=== PATIENT | female | born 1950 | race Caucasian/White ===

== ENCOUNTER → 2019-06-30 14:40 | Outpatient (CLI) | payer MEDICARE, SELFPAY ==
--- NOTE | 2019-06-30 | DI.RAD.S_ITS ---
PROCEDURE: XR CHEST 2V INDICATIONS: CHRONIC COUGH TECHNIQUE: 2 views of the chest were acquired. COMPARISON: [facility], , CHEST 2 VIEW, 10/14/2017, 14:48. FINDINGS: Surgical changes and devices: None. Lungs and pleura: No acute consolidation. Scattered subsegmental atelectasis and/or scarring. No pleural effusion. No pneumothorax. 1.4 cm nodule projects in the right midlung and warrants further evaluation with CT Mediastinum: Mediastinal contours are normal. Heart size is normal. Bones and chest wall: No suspicious bony abnormalities. Soft tissues appear unremarkable. IMPRESSION: New 1.4 cm nodule projecting in the right midlung, concerning for malignant/metastatic etiology. Recommend further evaluation with chest CT. Dictated by: Nestor Houston M.D. on 06/30/2019 at 15:01 Approved by: Nestor Houston M.D. on 06/30/2019 at 15:27
== END ==
PROVIDERS: Visit Provider Internal Medicine
DX: R05 Cough (principal); R91.1 Solitary pulmonary nodule
CPT/HCPCS: 71046

== ENCOUNTER → 2019-07-07 12:40 | Outpatient (CLI) | payer MEDICARE, SELFPAY ==
--- NOTE | 2019-07-07 | DI.CT.S_ITS ---
PROCEDURE: CT CHEST W CON INDICATIONS: Other nonspecific abnormal finding of lung field TECHNIQUE: After the administration of intravenous contrast, 5 mm thick sections acquired from the pulmonary apices to the posterior costophrenic angles. 1 mm axial lung, 5 mm thick coronal and sagittal reformats and 7 mm axial MIP were acquired. For radiation dose reduction, the following was used: automated exposure control, adjustment of mA and/or kV according to patient size. COMPARISON: None. FINDINGS: Image quality: Excellent. Lungs and pleura: No acute air space opacities on the left and there is a lobulated masslike structure at the right upper lobe corresponding to the abnormality seen by plain film 06/30/19. This measures up to 1.9 cm AP, 1.5 cm transverse and 1.3 cm craniocaudad. On sagittal reformatt imaging it appears to abut the upper surface of the minor fissure. A bronchus leads to this mass. No pleural effusions or pneumothorax. Central and peripheral airways are patent and normal in caliber. Mediastinum: Heart size is normal. No pericardial effusion. No mediastinal or hilar adenopathy by size criteria. Thoracic aorta and central pulmonary arteries are normal in size. Esophagus is normal in caliber. No hiatal hernia. Bones and chest wall: No suspicious bony lesions. No vertebral body compression fractures. No axillary or supraclavicular adenopathy by size criteria. Thyroid gland appears normal. Abdomen: Visualized upper abdominal solid organs appear normal. Upper abdominal bowel loops are normal in caliber. IMPRESSION: Mildly spiculated likely malignant mass involving the right lung appears located within the inferior margin of the right upper lobe abutting the minor fissure at its upper aspect. This measures up to 1.9 x 1.5 x 1.3 cm. It was initially seen by plain film imaging earlier this month. As noted, a bronchus leads to the mass, and for this reason transbronchial biopsy likely is warranted. Nuclear medicine PET CT scanning also is recommended for staging purposes and to assist in confirming presence of malignancy in this setting of solitary pulmonary nodule evaluation. Dictated by: Goran Waite M.D. on 07/07/2019 at 15:08 Approved by: Goran Waite M.D. on 07/07/2019 at 15:15
[2019-07-07 13:43] LABS: Blood Urea Nitrogen 10 mg/dL (7-17); Estimated Glomerular Filt Rate > 60.0 mL/min (>60)
== END ==
PROVIDERS: Visit Provider Internal Medicine
DX: R91.8 Other nonspecific abnormal finding of lung field (principal)
CPT/HCPCS: 36415; 71260; 82565; 84520; Q9967

== ENCOUNTER 2019-08-30 12:22 | Day surgery (SDC) | payer MEDICARE, SELFPAY ==
--- NOTE | 2019-08-30 | PATH_ITS ---
[facility] Accession Number: [id number] . 01 Material submitted: . PART A: sigmoid colon - SIGMOID POLYP PART B: rectum - RECTAL POLYP X3 . 01 Clinical history: . COLONOSCOPY . 02 Diagnosis: A. Sigmoid Colon, Polyp, Biopsy: Hyperplastic polyp. . B. Rectum, Polyps x3, Biopsies: Hyperplastic polyps. MRV 08/31/2019 1121 Local . 02 Electronically signed: . Tatum Rose MD, Pathologist NPI- [id number] . 01 Gross description: . Part A: SIGMOID POLYP: Received in formalin is 1 fragment(s) of hughes, soft tissue measuring 0.1 x 0.1 x 0.1 cm submitted entirely in 1 cassette(s) Part B: RECTAL POLYP X3: Received in formalin are 3 fragment(s) of hughes, soft tissue measuring 0.2 x 0.2 x 0.2 cm to 0.3 x 0.3 x 0.3 cm submitted entirely in 1 cassette(s) /[facility] [place] 08/30/2019 203 Local . 02 Pathologist provided ICD-10: K63.5, K62.1 . 02 CPT . 750965, [id number] Performed at: 01 [facility] [address], [place], [place] [id number] MD Ash Arauz MD Phone: [phone] Performed at: 02 [facility] [address] [place], [place] [id number] MD Tatum Rose MD Phone: [phone]
--- NOTE | 2019-08-30 09:37 | PM.HP.1 ---
History of Present Illness History of Present Illness Date Patient Seen: 08/30/19 Chief complaint: [id number] COLONOSCOPY Narrative: Patient presented for colonoscopy. She did have Cologaurd testing that was positive. No previous colonoscopy. No known family history of colon cancer or colon polyps. Meds Home Medications and Allergies Home Medications Medication Instructions Recorded Confirmed Type divalproex 500 mg PO DAILY 08/30/19 08/30/19 History docusate sodium 100 mg PO DAILY 08/30/19 08/30/19 History multivitamin 1 tab PO DAILY 08/30/19 08/30/19 History psyllium husk [Metamucil] 1 tbsp PO DAILY 08/30/19 08/30/19 History simvastatin 10 mg PO DAILY 08/30/19 08/30/19 History Allergies Allergy/AdvReac Type Severity Reaction Status Date / Time No Known Drug Allergies Allergy Verified 08/30/19 13:54 Review of Systems Review of Systems ROS Unobtainable: All systems reviewed & are unremarkable except as noted in HPI and below Exam Const General: cooperative, comfortable and well developed Nutritional Appearance: thin Orientation: alert, awake and oriented x3 Resp Effort & Inspection: normal respiratory effort and able to speak in complete sentences Auscultation: clear to auscultation bilaterally Cardio Rate: regular rate Rhythm: regular rhythm Heart Sounds: S1 normal and S2 normal GI Palpation: soft and No tender Auscultation: normal bowel sounds Extrem Right lower extremity: no edema Left lower extremity: no edema Assessment & Plan Assessment & Plan narrative: 1. Positive Cologaurd - Colonoscopy today, further recommendations to follow
[2019-08-30 13:58] VITALS: BP 121/66; PULSE 79; RESP 15; TEMP 36.2; O2SAT 100; BMI 17.7
[2019-08-30] MEDS: SODIUM CHLORIDE 0.9% 1,000 ML 70 ML IV (14:10)
[2019-08-30] MEDS: fentaNYL 250 MCG/5 ML INJ IV (14:36)
[2019-08-30] MEDS: MIDAZOLAM 5 MG/5 ML VIAL IV (14:36)
[2019-08-30 14:54] VITALS: BP 106/59; PULSE 69; RESP 15; TEMP 36.1; O2SAT 100
[2019-08-30 14:59] VITALS: BP 90/52; PULSE 60; RESP 13; O2SAT 100
--- NOTE | 2019-08-30 15:02 | PM.OP.ENDO ---
Operative Date/Time/Diagnoses Date of procedure: 08/30/19 Time of procedure: 14:19 Procedure Notes Procedure in detail: Surgeon: Madelaine Kraft DO Procedure: Colonoscopy with polypectomy Preoperative diagnosis: 1. Positive Cologaurd testing 2. Unintentional weight loss Postoperative diagnosis: 1. 4 mm sigmoid colon polyp removed cold snare 2. Three rectosigmoid polyps removed with cold forceps 2-3 mm in size 3. Diverticulosis of the sigmoid, descending, and transverse colon Medications: Conscious sedation using 2 mg IV of Midazolam and 100 mcg IV of Fentanyl Preanesthesia Assessment An H and P was performed/updated and the Px?s ASA class is 2. The procedure was discussed in detail with the patient. The potential risks and complications including infection, bleeding, missed lesions, perforation, need for surgery in case of perforation, prolonged hospital stay, and were explained. A brief question and answer period was allotted and once all questions were answered, informed consent was obtained. The patient was brought back to the procedure room and placed on standard monitoring. The patient?s vital signs were monitored continuously throughout the entire procedure. Prior to starting, a timeout was performed to confirm the patient?s identity, allergies, medications, and procedure. 1. 4 mm sigmoid colon polyp removed cold snare 2. Three rectosigmoid polyps removed with cold forceps 2-3 mm in size 3. Diverticulosis of the sigmoid, descending, and transverse colon -medium to large Procedure in detail The patient was placed in left lateral decubitus position and once adequate sedation was obtained a TONG was performed. The digital rectal examination did not reveal any palpable lesions. The tip of the colonoscope was placed in the anal canal and advanced without difficulty all the way to the cecum which was identified by the appendiceal orifice and the ileocecal valve. Careful examination of all laird of the colon was performed with irrigation of any residual stool. The patient tolerated the procedure well and will be brought back to the recovery area to be discharged once criteria are met. The prep was judged to be adequate to identify polyps greater than 5 mm. The withdrawal time was 18min. The total physician intraservice time was 30min. Complications There were no complications and estimated blood loss was minimal. Recommendations: Resume previous diet Continue outPx medications Follow up pathology results Repeat colonoscopy based on pathology results Recommend further evaluation for unintentional weight loss, consider CT abdomen and pelvis -recommend office follow-up for further workup recommendations. An emergency contact number was given to the patient for any complications related to the procedure
[2019-08-30 15:04] VITALS: BP 87/49; PULSE 60; RESP 13; O2SAT 100
[2019-08-30 15:20] VITALS: BP 113/56; PULSE 66; RESP 20; O2SAT 98
[2019-08-30 15:27] VITALS: BP 109/59; PULSE 59; RESP 16; TEMP 36.2; O2SAT 99
== END 2019-08-30 15:45 | disposition home or self-care (01) ==
PROVIDERS: PCP Nurse Practitioner Family; Visit Provider Student in an Organized Health Care Education/Training Program
PROC: 0DJD8ZZ Inspection of Lower Intestinal Tract, Via Natural or Artificial Opening Endoscopic (ICD-10-PCS; CPT 45378; principal; 2019-08-30 13:30)
DX: R19.5 Other fecal abnormalities (principal); K57.30 Diverticulosis of large intestine without perforation or abscess without bleeding; R63.4 Abnormal weight loss; K62.1 Rectal polyp; K63.5 Polyp of colon
CPT/HCPCS: 45385; 45380; J2250; J3010

== ENCOUNTER → 2019-09-06 16:43 | Outpatient (CLI) | payer MEDICARE, SELFPAY ==
[2019-09-06 18:19] LABS: Cancer Antigen 125 6 U/mL (0-35)
== END ==
PROVIDERS: Family Provider Internal Medicine; PCP Internal Medicine; Visit Provider Obstetrics & Gynecology
DX: R14.0 Abdominal distension (gaseous) (principal)
CPT/HCPCS: 36415; 86304

== ENCOUNTER → 2019-09-08 13:55 | Outpatient (CLI) | payer MEDICARE, SELFPAY ==
--- NOTE | 2019-09-15 08:38 | PM.PFT.1 ---
Pulmonary Function Test Referral & Results Date Patient Seen: 09/08/19 Requesting provider: Hector Ochoa Results: The spirometry demonstrates an FVC of 1.8 L which is 68% of predicted. The FEV1 was measured at 1.27 L which is 61% of predicted. The FEV1/FVC ratio was 68 which is 89% of predicted. Following the administration of bronchodilator there was and 11% improvement in FEV1 and a 50% improvement in FEF 25-75%. Lung volumes show an SVC of 1.64 L which is 61% of predicted. The diffusing capacity was measured at 13.13 which is 60% of predicted. No hemoglobin value was provided, so no correction for potential anemia could be made, if appropriate. The maximum voluntary ventilation was reduced Interpretation: This study demonstrates mild to moderate obstructive lung disease with limited evidence of benefit following bronchodilator, particularly small airway flow based on improvement in FEF 25-75% There is also [id number] restrictive lung disease present based on reduction SVC There is also moderate reduction in diffusing capacity suggesting disease at the capillary alveolar level Altogether this is consistent with a diagnosis of COPD
== END ==
PROVIDERS: Family Provider Internal Medicine; PCP Internal Medicine; Visit Provider Thoracic Surgery (Cardiothoracic Vascular Surgery)
DX: C34.11 Malignant neoplasm of upper lobe, right bronchus or lung (principal); F17.200 Nicotine dependence, unspecified, uncomplicated
CPT/HCPCS: 94060; 94726; 94729

== ENCOUNTER → 2019-09-15 12:03 | Outpatient (CLI) | payer MEDICARE, SELFPAY ==
--- NOTE | 2019-09-15 12:04 | DI.US.S_ITS ---
PROCEDURE: US PELVIC COMPLETE INDICATIONS: ABDOMINAL BLOATING, LUNG CANCER TECHNIQUE: Real-time scanning was performed of the pelvic organs, with image documentation. Additional endovaginal scanning was necessary due to incomplete visualization of the adnexal and endometrial structures by transabdominal scanning. COMPARISON: [facility], [place], PET NECK TO MID THIGH, 08/31/2019, 10:00. [facility], , US ABDOMEN COMPLETE, 09/15/2019, 12:20. FINDINGS: Transabdominal scanning: Limited scanning through the kidneys shows no hydronephrosis. No pathologic free abdominal or pelvic fluid. Endovaginal scanning: Uterus: Prior hysterectomy. Ovaries: Ovaries not identified. No adnexal mass is seen. Debris within the urinary bladder. Bladder wall is prominent and there is urinary bladder posterior wall irregularity likely related to trabeculations. IMPRESSION: 1. Ovaries not identified. 2. Debris within the urinary bladder which could be related to cystitis. Recommend correlation with urinalysis. 3. Possible urinary bladder wall thickening and posterior wall irregularity suggestive of trabeculations. Dictated by: Michele Brantley [facility] Interpreted: Lola Marrero MD on 09/15/2019 at 16:31 Approved by: Lola Marrero M.D. on 09/15/2019 at 16:48
--- NOTE | 2019-09-15 12:04 | DI.US.S_ITS ---
PROCEDURE: US ABDOMEN COMPLETE INDICATIONS: ABDOMINAL BLOATING, LUNG CANCER TECHNIQUE: Real-time scanning was performed of the abdominal and retroperitoneal organs, with image documentation. COMPARISON: [facility], [place], XR CHEST 2 VIEWS, 09/14/2019, 7:58. FINDINGS: Liver: Liver is normal in size and homogeneous in echotexture. Gallbladder: No gallstones identified. Normal gallbladder wall. No pericholecystic fluid. Negative sonographic Ramsay sign. Biliary ducts: Intrahepatic bile ducts are non-dilated. Extrahepatic bile duct caliber measures 7.0 mm. Normal is 6-7 mm or less in diameter, or 10 mm or less post-cholecystectomy. Pancreas: Visualized portions of the pancreas are sonographically normal. Spleen: Spleen is normal in size and homogeneous in echotexture. Kidneys: Kidneys are normal in size and echotexture. Right kidney measures 10.1 cm long; left kidney measures 9.7 cm long. No hydronephrosis or nephrolithiasis. No solid masses. Subcentimeter right renal cortical cyst. Aorta: Visualized aorta is normal in caliber at less than 3 cm. Iliacs: Not well-seen. IVC: Intrahepatic inferior vena cava is patent. Miscellaneous: No free abdominal fluid. Small right pleural effusion. IMPRESSION: No source for abdominal and pelvic bloating identified. Small right pleural effusion. Dictated by: Michele Brantley [facility] Interpreted: Lola Marrero MD on 09/15/2019 at 16:28 Approved by: Lola Marrero M.D. on 09/15/2019 at 16:48
== END ==
PROVIDERS: PCP Internal Medicine; Visit Provider Obstetrics & Gynecology
DX: R14.0 Abdominal distension (gaseous) (principal); C34.90 Malignant neoplasm of unspecified part of unspecified bronchus or lung; J90 Pleural effusion, not elsewhere classified; Z90.710 Acquired absence of both cervix and uterus
CPT/HCPCS: 76700; 76830; 76856

== ENCOUNTER → 2020-12-05 13:35 | Outpatient (CLI) | payer MEDICARE, SELFPAY ==
[2020-12-05] MEDS: COVID-19 VACC, Ad26(JANSSEN)/PF 0.5 ML IM (14:45)
== END ==
PROVIDERS: PCP Internal Medicine; Visit Provider Internal Medicine
DX: Z23 Encounter for immunization (principal)
CPT/HCPCS: 0031A; 91303

== ENCOUNTER → 2021-07-25 14:12 | Outpatient (CLI) | payer MEDICARE, SELFPAY ==
[2021-07-25 14:44] LABS: Hemoglobin A1C% w Est Avg Glu 5.7 % (4.0-6.0)
== END ==
PROVIDERS: PCP Physician Assistant; Referring Provider Physician Assistant; Visit Provider Physician Assistant
DX: R73.03 Prediabetes (principal)
CPT/HCPCS: 36415; 83036

== ENCOUNTER → 2022-09-03 11:36 | Outpatient (CLI) | payer MEDICARE, SELFPAY ==
[2022-09-03 12:05] LABS: Add Manual Diff / Slide Review NO; Basophils Absolute Auto 100 /uL (0-100); Eosinophils Absolute Auto 200 /uL (0-450); Eosinophils Percent Auto 1.9 % (2-4); Hematocrit 42.5 % (36-46); Hemoglobin 14.5 g/dL (12.0-16.0); Lymphocytes Absolute Auto 2500 /uL (1100-4500); Lymphocytes Percent Auto 26.6 % (25-40); Mean Corpuscular HGB Conc 34.1 % (30-36); Mean Corpuscular Hemoglobin 30.8 PG (26-34); Mean Corpuscular Volume 90.2 fL (80-100); Monocytes Absolute Auto 700 /uL (0-900); Monocytes Percent Auto 7.2 % (3-14); Neutrophils Absolute Auto 5900 /uL (1500-7000); Neutrophils Percent Auto 63.3 % (50-75); Platelet Count 235 X10^3/uL (150-400); Red Blood Cell Count 4.71 X10^6/uL (4.0-5.2); Red Cell Distribution Width 13.2 % (11.6-14.8); White Blood Cell Count 9.2 X10^3/uL (4.5-11.0)
[2022-09-03 12:17] LABS: Hemoglobin A1C% w Est Avg Glu 6.1 % (4.0-6.0)
[2022-09-03 12:25] LABS: Alanine Aminotransferase 17 IU/L (<35); Albumin 3.9 g/dL (3.5-5.0); Albumin Globulin Ratio 1.4 (1.0-2.8); Alkaline Phosphatase 61 U/L (38-126); Aspartate Aminotransferase 21 IU/L (14-36); Bilirubin Total 0.5 mg/dL (0.2-1.3); Blood Urea Nitrogen 12 mg/dL (7-17); Calcium 9.1 mg/dL (8.4-10.2); Carbon Dioxide 28 mmol/L (22-32); Chloride 108 mmol/L (98-107); Cholesterol 193 mg/dL (140-199); Estimated Glomerular Filt Rate > 60 mL/min (>60); Globulin 2.8 g/dL (1.7-4.1); Glucose 108 mg/dL (80-110); HDL Cholesterol 49 mg/dL (40-60); HEMOLYSIS < 15 (0-50); LDL Cholesterol Calculated 113 mg/dL (<100); Potassium 4.1 mmol/L (3.4-5.1); Sodium 143 mmol/L (137-145); Total Protein 6.7 g/dL (6.3-8.2); Triglycerides 153 mg/dL (35-150)
[2022-09-03 12:54] LABS: TSH w/ Reflex to FT4 1.38 uIU/mL (0.47-4.68)
--- NOTE | 2022-09-03 16:07 | DI.MG.S_ITS ---
BILATERAL DIGITAL SCREENING MAMMOGRAM 3D/2D WITH CAD: 09/03/2022 CLINICAL: Routine screening. Comparison is made to exams dated: 06/12/2014 mammogram - [facility], 03/22/2012 mammogram, and 12/17/2010 mammogram - [facility]. There are scattered areas of fibroglandular density in both breasts (category b / 25%-50% glandular tissue). Current study was also evaluated with a Computer Aided Detection (CAD) system. There are mole markers on the right breast. No significant masses, calcifications, or other findings are seen in either breast. There has been no significant interval change. IMPRESSION: NEGATIVE There is no mammographic evidence of malignancy. A 1 year screening mammogram is recommended. Based on the Tyrer Cuzick model (a risk assessment model) the patient's lifetime risk is 3.7% and her 10 year risk is 3.0%. According to the ACR, ACS, and NCCN guidelines, an annual breast MRI exam along with mammogram is recommended if the patient's lifetime risk is 20% or greater. This exam was interpreted at Station ID: [id number]. NOTE: For mammograms, a report in lay terms will be sent to the patient. Approximately 15% of breast malignancies will not be visualized mammographically. In the management of a palpable breast mass, a negative mammogram must not discourage biopsy of a clinically suspicious lesion. Electronically Signed By: Jenae johnson/augustin:09/04/2022 09:19:09 letter sent: Normal Exam ACR BI-RADS Category 1: Negative [id number]
== END ==
PROVIDERS: PCP Family Medicine; Referring Provider Family Medicine; Visit Provider Family Medicine
DX: C34.90 Malignant neoplasm of unspecified part of unspecified bronchus or lung (principal); Z13.820 Encounter for screening for osteoporosis; M81.0 Age-related osteoporosis without current pathological fracture; Z78.0 Asymptomatic menopausal state; Z12.31 Encounter for screening mammogram for malignant neoplasm of breast; R53.83 Other fatigue; R73.03 Prediabetes; E78.5 Hyperlipidemia, unspecified; R63.4 Abnormal weight loss; Z90.710 Acquired absence of both cervix and uterus
CPT/HCPCS: 36415; 77063; 77067; 77080; 80053; 80061; 83036; 84443; 85025

== ENCOUNTER → 2022-12-25 11:41 | Outpatient (CLI) | payer MEDICARE, SELFPAY ==
[2022-12-25 15:27] LABS: Alanine Aminotransferase 16 IU/L (<35); Albumin 3.8 g/dL (3.5-5.0); Albumin Globulin Ratio 1.3 (1.0-2.8); Alkaline Phosphatase 60 U/L (38-126); Aspartate Aminotransferase 22 IU/L (14-36); BUN Creatinine Ratio 18.8 (6-22); Bilirubin Total 0.6 mg/dL (0.2-1.3); Blood Urea Nitrogen 9 mg/dL (7-17); Calcium 9.7 mg/dL (8.4-10.2); Carbon Dioxide 30 mmol/L (22-32); Chloride 106 mmol/L (98-107); Cholesterol 170 mg/dL (140-199); Estimated Glomerular Filt Rate > 60 mL/min (>60); Globulin 2.9 g/dL (1.7-4.1); Glucose 85 mg/dL (80-110); HDL Cholesterol 51 mg/dL (40-60); HEMOLYSIS < 15 (0-50); LDL Cholesterol Calculated 90 mg/dL (<100); Potassium 4.2 mmol/L (3.4-5.1); Sodium 143 mmol/L (137-145); Total Protein 6.7 g/dL (6.3-8.2); Triglycerides 147 mg/dL (35-150)
[2022-12-25 15:41] LABS: Vitamin D 25 Hydroxy (D3) 44.3 ng/mL (30.0-100.0)
== END ==
PROVIDERS: Family Provider Family Medicine; PCP Family Medicine; Referring Provider Family Medicine; Visit Provider Family Medicine
DX: E78.5 Hyperlipidemia, unspecified (principal); M81.0 Age-related osteoporosis without current pathological fracture; R73.03 Prediabetes; Z79.899 Other long term (current) drug therapy
CPT/HCPCS: 36415; 80053; 80061; 82306; 83036

== ENCOUNTER 2023-03-11 12:30 | Outpatient (RCR) | payer MEDICARE, SELFPAY ==
--- NOTE | 2022-10-30 16:29 | PT.OIE ---
Current Diagnoses Unspecified urinary incontinence (10/30/22) Visit Care Team Role Provider Type SUHAS Lopes Attending Provider Physician Family Provider Primary Care Provider Referring Provider Specialty: Nursing Address: [address] [place] [address], [id number] Email: Physical Therapy Initial Evaluation PT-OP-A Visit Information Start: 10/30/22 12:35 Freq: Status: Active Protocol: Document 10/30/22 13:53 LRN (Rec: 10/30/22 16:27 LRN [id number]) Out-Patient Physical Therapy Visit Information Visit Information Visit Type Initial Evaluation Visit Start Time 13:53 Visit Stop Time 14:53 Total Visit Minutes 60 Visit Number 1 Evaluation Information Evaluation Date 10/30/22 Precautions Precautions Pt reports osteopenia in LB and R hip and osteroporosis of the L hip. Hyste and sling for prolapse 2010, Lung CA stage I surgery that was successful 2018 PT-OP-B Current Condition Start: 10/30/22 12:35 Freq: Status: Active Protocol: Document 10/30/22 13:53 LRN (Rec: 10/30/22 16:27 LRN [id number]) Current Condition History of Current Condition Onset Date 3-4 yrs ago Current Complaints Having to wear 2 adult diapers during the day. History of Current Condition Was having difficulty getting to work in without leaking; therefore started wearing diapers. 1 yr ago started wearing 2 diapers. Was taking care of grandson and had to use one on top of the other, but usually after getting home would toss the top one and use the bottom one for the rest of the day. Most days can get by with using just one . During the night usually can hold urine to get to the toilet. I was noted: pt needed to use BR at start and 1x during evaluation. Pt is R handed Prior Treatments and Tests Surgeries: Hyste & sling for bladder prolapse (unsure if has mesh placed or not) 2010, done in [place], [place] . Precautions given: Not to lift > 25# and not do sit ups. Future Testing and Treatments Planned Oncologist 09/2023 Seeing referring physician/ blueprinting machine operator in December 2022. Treatment Goals Patient/Caregiver Goals Pt goals: 1. Be able to control her urine and not have to wear adult diapers. 2. Be able to move and get up /down comfortably without having the feeling of heaviness and having to go urgently. 3. Not have pain at nighttime when having an urge to go to the bathroom. 4. Not have to get up every 2 hours in the night to use the bathroom. Personal Factors Other Personal Factors That May Effect Lung CA surgery with good Therapy/Recovery results 2018. Laser was use to remove a small portion of the R lung. Osteroporosis of the L hip and osteopenia of spine and R hip. Surgical sling for prolapse place 2010. PT-OP-C Subjective Start: 10/30/22 12:35 Freq: Status: Active Protocol: Document 10/30/22 13:53 LRN (Rec: 10/30/22 16:27 LRN [id number]) Patient Questionnaires Pelvic Pain and Urgency/Frequency Patient Symptom Scale Pelvic Pain Score 11 PT-OP-I Pelvic Floor Start: 10/30/22 12:35 Freq: Status: Active Protocol: Document 10/30/22 13:53 LRN (Rec: 10/30/22 16:27 LRN [id number]) Pelvic Floor Assessment Urine Pelvic Floor Surgery Yes Urinary Symptoms Urge Sensation,Falling Out Feeling/Heavy,Pain Leakage Size Large Leakage Cause Urge Voiding Frequency every 2 hours Nocturia 3-4 times, every 2 hours Pads Used In 24 Hours 2 Urine Pad Type Depends Bowel Bowel Symptoms Constipation Bowel Movement Frequency Daily, in mornings. [place] Stool Chart Comments Stool types range 2-4. Pt takes stool softner and uses fiber in her diet. Pelvic Clock Pelvic Clock 12-3 Atrophy Pelvic Clock 3-6 Atrophy Pelvic Clock 6-9 Atrophy Pelvic Clock 9-12 Atrophy Prolapse Cystocele Grade 2 Perineal Descent Resting Present Bearing Present Contraction Ability Voluntary Contraction Weak Manual Muscle Testing Left 2 Manual Muscle Testing Right 1 Manual Muscle Testing Anterior 0 Manual Muscle Testing Posterior 3 Muscle Endurance (Seconds) 3 Comments Pelvic Floor Comments PF tissues externally appears dry and perineum is read around vaginal canal. PF contraction pt uses substitute ms of abdomen, gluteals and hip AD's, and holds breath. PT-OP-J Posture/Palpation/Skin Start: 10/30/22 12:35 Freq: Status: Active Protocol: Document 10/30/22 13:53 LRN (Rec: 10/30/22 16:27 LRN [id number]) Posture Evaluation Position Standing Head/C-Spine Posture Forward Head T-Spine Posture Increased Kyphosis L-Spine Posture Decreased Lordosis Shoulder Posture (L) Elevated Hip Posture (L) Externally Rotated Comments Posture Comments Holds L arm in AB. R breast is low. C-curve of spine with apex on the left. PT-OP-K Range of Motion Start: 10/30/22 12:35 Freq: Status: Active Protocol: Document 10/30/22 13:53 LRN (Rec: 10/30/22 16:27 LR [id number]) Lumbar Spine Range of Motion Lumbar Spine Active Degrees Testing Position Standing Flexion 55 Extension 5 Rotation Left 20 Rotation Right 20 Lateral Flexion Left 10 Lateral Flexion Right 10 Hip Goniometric Range of Motion Hip Right Passive Testing Position Supine Internal Rotation 45 External Rotation 50 Comments Measurements are approximations. Left Passive Testing Position Supine Internal Rotation 30 External Rotation 75 Comments Measurements are approximations. PT-OP-M Strength Start: 10/30/22 12:35 Freq: Status: Active Protocol: Document 10/30/22 13:53 LRN (Rec: 10/30/22 16:27 [facility] [id number]) Trunk Strength Trunk Manual Muscle Testing Core Stabilization Not able to maintain core stability with MMT of LE's. Hip Strength Hip Manual Muscle Testing Right Flexion (L2) 3 Fair Extension (S1) 3 Fair Abduction 5 Normal Adduction 3 Fair External Rotation 5 Normal Internal Rotation 5 Normal Left Flexion (L2) 3 Fair Extension (S1) 3 Fair Abduction 5 Normal Adduction 4+ Good+ External Rotation 4 Good Internal Rotation 5 Normal PT-OP-Q Treatments Start: 10/30/22 12:35 Freq: Status: Active Protocol: Document 10/30/22 13:53 LRN (Rec: 10/30/22 16:27 [facility] [id number]) Therapeutic Exercises Sitting Exercises Kegels Sitting Exercise Name Training of Kegels for quick flicks, long holds and aggrevators. Deep Breathing Sitting Exercise Name Deep Breathing training Comments Cuing at abdomen and v cuing to move abdomen vs chest Self-Care/Home Management Treatment Education Other Education Discussed results of evaluation, goals, and plan of care (POC). Pt agreeable to goals and POC. Issued, discussed, & reviewed Bladder Diary for pt to complete over the next 7 days. Discussed use of 2 different diaries for tracking of bladder. Explained how to fill out diary and counting of urination times. Discussed and educated pt in to improve awareness of isolating her PF contraction from her hip Adductors, gluteals, TA and breathholding . Activities Self-Care/Home Management Activities Issued bladder diary handouts. Issued & reviewed HEP: Kegel ex's of quick flicks, long holds and aggrevators. PT-OP-T Assessment and Plan Start: 10/30/22 12:35 Freq: Status: Active Protocol: Document 10/30/22 13:53 LRN (Rec: 10/30/22 16:27 LRN [id number]) Physical Therapy Assessment Rehab Potential Rehabilitation Potential Good Evaluation Complexity Number of Personal Factors/Comorbidities 3 or More Number of Body Systems Impaired 4 or More Clinical Presentation at Evaluation Evolving Impairments Impairments Activity Tolerance,Posture,ROM ,Soft Tissue Mobility,Strength ,Transfers Other Impairments Constipation Dry pelvic floor external tissues. Goals Four Impairment Increased frequency of urination every 2 hours or less Short Term Goal (STG) Decrease pelvic pain at nighttime when having an urge to go to the bathroom, and eliminate the need for a pad at nighttime. STG Duration 11/27/22 Fdc Goal (LTG) Pt will not have to get up every 2 hours in the night to use the bathroom. LTG Duration 01/28/23 Three Impairment Not able to perform a PF contraction in the absence of abdominal/glut ms Short Term Goal (STG) Improve awareness of the sensation of a proper PF contraction. STG Duration 11/27/22 Fdc Goal (LTG) Pt will be able to isolate a PF contraction without overuse of the outer abdominal, gluteal, and hip AD muscles. LTG Duration 01/28/23 Two Impairment PF weakness with urinary leakage with a strong urge. Short Term Goal (STG) Pt will be educated in urinary delay technique, and be able to move and get up/down comfortably without having the feeling of heaviness and having to go urgently. STG Duration 11/06/22 Heavy Coil Winder Goal (LTG) Strengthen the PF for pt to be able to control her urine and not have to wear adult diapers, or at the most a regular urinary incontinent pad during the day. LTG Duration 01/28/23 One Impairment Pt lacks appropriate self care HEP. Short Term Goal (STG) Education in proper methods for transfer with coordination of breathing, and proper vulvar/genital care. STG Duration 11/06/22 Heavy Coil Winder Goal (LTG) Pt will be independent with a self care HEP of PF/core strengthening and hip ROM exercises. LTG Duration 01/28/23 Assessment Summary Assessment Pt is a 72 yo female who presents with urge urinary incontinence, and cytocele grade 2, due to weak pelvic floor. The pt demonstrates poor strength and coordination of PF tightening with breathholding and obvious substitution of accessory muscles (gluteals, hip adductors and core muscles). Her PF weakness is exacerbated by her poor posture and decreased hip rotation mobility and asymmetry of mobility. Her external PF tissues appear dry and fragile , and if appropriate may benefit from a estrodial cream if appropriate based on her cancer history. The pt will benefit from. It is expected that the pt's rehab may take longer than expected due to her other health conditions hindering her ability to progress. The pt will benefit from skilled physical therapy to achieve the above stated goals. Physical Therapy Plan Frequency and Duration Frequency of Treatment 1x/Week Plan of Care Start Date 10/30/22 Plan of Care End Date 01/28/23 Therapeutic Interventions Therapeutic Interventions Home Exercise Program,Manual Therapy,Patient/Caregiver Education,Self-Care/Home Management,Soft Tissue Mobilization,Therapeutic Activities,Therapeutic Exercises Modalities Biofeedback,Cold Pack/Ice Massage,Electric Stimulation Next Visit Focus/Plan Next Note Type Treatment Note Next Visit Plan Assess bladder diary and bowel involvement with recommendations as appropriate . Kegels for proper contraction without use of subtitue muscles. EMG biofeedback if vaginal electrode will fit lengthwise in vagina. Education: Coordination of proper breaths and PF contractions with ADLs, transfers, body mechanics and exercise. Proper posture. EX: Hip stretch (huseyin ER), trunk L SB stretch. 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 Strengthening Hip flex, ext, AD, ER. STM: (abdomen mid and lower)
--- NOTE | 2022-11-06 16:27 | PT.OTN ---
Current Diagnoses Unspecified urinary incontinence (11/06/22) Physical Therapy Treatment Note PT-OP-A Visit Information Start: 10/30/22 12:35 Freq: Status: Active Protocol: Document 11/06/22 15:25 LRN (Rec: 11/06/22 16:26 LRN [id number]) Out-Patient Physical Therapy Visit Information Visit Information Visit Type Treatment Note Visit Start Time 15:25 Visit Stop Time 16:05 Total Visit Minutes 40 Visit Number 2 Evaluation Information Evaluation Date 10/30/22 Precautions Precautions Pt reports osteopenia in LB and R hip and osteroporosis of the L hip. Hyste and sling for prolapse 2010, Lung CA stage I surgery that was successful 2018 PT-OP-B Current Condition Start: 10/30/22 12:35 Freq: Status: Active Protocol: Document 10/30/22 13:53 LRN (Rec: 10/30/22 16:27 LRN [id number]) Current Condition History of Current Condition Onset Date 3-4 yrs ago Current Complaints Having to wear 2 adult diapers during the day. History of Current Condition Was having difficulty getting to work in [place] without leaking; therefore started wearing diapers. 1 yr ago started wearing 2 diapers. Was taking care of grandson and had to use one on top of the other, but usually after getting home would toss the top one and use the bottom one for the rest of the day. Most days can get by with using just one . During the night usually can hold urine to get to the toilet. I was noted: pt needed to use BR at start and 1x during evaluation. Pt is R handed Prior Treatments and Tests Surgeries: Hyste & sling for bladder prolapse (unsure if has mesh placed or not) 2010, done in [place], [place] . Precautions given: Not to lift > 25# and not do sit ups. Future Testing and Treatments Planned Oncologist 09/2023 Seeing referring physician/ primary care physician in December 2022. Treatment Goals Patient/Caregiver Goals Pt goals: 1. Be able to control her urine and not have to wear adult diapers. 2. Be able to move and get up /down comfortably without having the feeling of heaviness and having to go urgently. 3. Not have pain at nighttime when having an urge to go to the bathroom. 4. Not have to get up every 2 hours in the night to use the bathroom. Personal Factors Other Personal Factors That May Effect Lung CA surgery with good Therapy/Recovery results 2018. Laser was use to remove a small portion of the R lung. Osteroporosis of the L hip and osteopenia of spine and R hip. Surgical sling for prolapse place 2010. PT-OP-C Subjective Start: 10/30/22 12:35 Freq: Status: Active Protocol: Document 11/06/22 15:25 LRN (Rec: 11/06/22 16:26 LRN [id number]) OP-PT Subjective Patient Comments Patient Comments Had 2 times couldn't hold urine. PT-OP-I Pelvic Floor Start: 10/30/22 12:35 Freq: Status: Active Protocol: Document 10/30/22 13:53 LRN (Rec: 10/30/22 16:27 LRN [id number]) Pelvic Floor Assessment Urine Pelvic Floor Surgery Yes Urinary Symptoms Urge Sensation,Falling Out Feeling/Heavy,Pain Leakage Size Large Leakage Cause Urge Voiding Frequency every 2 hours Nocturia 3-4 times, every 2 hours Pads Used In 24 Hours 2 Urine Pad Type Depends Bowel Bowel Symptoms Constipation Bowel Movement Frequency Daily, in mornings. [place] Stool Chart Comments Stool types range 2-4. Pt takes stool softner and uses fiber in her diet. Pelvic Clock Pelvic Clock 12-3 Atrophy Pelvic Clock 3-6 Atrophy Pelvic Clock 6-9 Atrophy Pelvic Clock 9-12 Atrophy Prolapse Cystocele Grade 2 Perineal Descent Resting Present Bearing Present Contraction Ability Voluntary Contraction Weak Manual Muscle Testing Left 2 Manual Muscle Testing Right 1 Manual Muscle Testing Anterior 0 Manual Muscle Testing Posterior 3 Muscle Endurance (Seconds) 3 Comments Pelvic Floor Comments PF tissues externally appears dry and perineum is read around vaginal canal. PF contraction pt uses substitute ms of abdomen, gluteals and hip AD's, and holds breath. PT-OP-J Posture/Palpation/Skin Start: 10/30/22 12:35 Freq: Status: Active Protocol: Document 10/30/22 13:53 LRN (Rec: 10/30/22 16:27 LRN [id number]) Posture Evaluation Position Standing Head/C-Spine Posture Forward Head T-Spine Posture Increased Kyphosis L-Spine Posture Decreased Lordosis Shoulder Posture (L) Elevated Hip Posture (L) Externally Rotated Comments Posture Comments Holds L arm in AB. R breast is low. C-curve of spine with apex on the left. PT-OP-K Range of Motion Start: 10/30/22 12:35 Freq: Status: Active Protocol: Document 10/30/22 13:53 LRN (Rec: 10/30/22 16:27 LRN [id number]) Lumbar Spine Range of Motion Lumbar Spine Active Degrees Testing Position Standing Flexion 55 Extension 5 Rotation Left 20 Rotation Right 20 Lateral Flexion Left 10 Lateral Flexion Right 10 Hip Goniometric Range of Motion Hip Right Passive Testing Position Supine Internal Rotation 45 External Rotation 50 Comments Measurements are approximations. Left Passive Testing Position Supine Internal Rotation 30 External Rotation 75 Comments Measurements are approximations. PT-OP-M Strength Start: 10/30/22 12:35 Freq: Status: Active Protocol: Document 10/30/22 13:53 LRN (Rec: 10/30/22 16:27 LRN [id number]) Trunk Strength Trunk Manual Muscle Testing Core Stabilization Not able to maintain core stability with MMT of LE's. Hip Strength Hip Manual Muscle Testing Right Flexion (L2) 3 Fair Extension (S1) 3 Fair Abduction 5 Normal Adduction 3 Fair External Rotation 5 Normal Internal Rotation 5 Normal Left Flexion (L2) 3 Fair Extension (S1) 3 Fair Abduction 5 Normal Adduction 4+ Good+ External Rotation 4 Good Internal Rotation 5 Normal PT-OP-Q Treatments Start: 10/30/22 12:35 Freq: Status: Active Protocol: Document 11/06/22 15:25 LRN (Rec: 11/06/22 16:26 LRN [id number]) Therapeutic Exercises Supine Exercises Kegel on Wedge Supine Exercise Name Kegels on Wedge w/o substitute ms Reps/Minutes 3' Comments Cuing for self cuing w/hands on belly/gluts. Kegel awareness Supine Exercise Name Kegel w/o use of substitute muscles Reps/Minutes 5' Comments Phys & v cuing with self cuing with hands on belly and gluts . Other Exercises Transfers w/PF/breathing Other Exercise Name Transfers w/coordinated proper breathing/PF contraction Side right Comments Cuing for proper coordination of PF/Breathing/movement Self-Care/Home Management Treatment Education Patient Education Body Mechanics,Home Exercise Program Other Education Reviewed Bladder dairy and discussed fluid intake (AM/PM) , bowel movement frequency, & nighttime voiding frequency, flood/beverages bladder diet and Bowel program. Recommended pt slowly build to fluid intake of 1/2 body wgt in oz's and discussed precautions of increased fluids without increased volume of voiding. Activities Self-Care/Home Management Activities I/S pt in Kegels in isolation of substitute muscles. I/S in Kegels with coodinated breathing with transfers. PT-OP-T Assessment and Plan Start: 10/30/22 12:35 Freq: Status: Active Protocol: Document 11/06/22 15:25 LRN (Rec: 11/06/22 16:26 LRN [id number]) Physical Therapy Assessment Goals Four Impairment Increased frequency of urination every 2 hours or less Short Term Goal (STG) Decrease pelvic pain at nighttime when having an urge to go to the bathroom, and eliminate the need for a pad at nighttime. STG Duration 11/27/22 Public Health Veterinarian Goal (LTG) Pt will not have to get up every 2 hours in the night to use the bathroom. LTG Duration 01/28/23 Three Impairment Not able to perform a PF contraction in the absence of abdominal/glut ms Short Term Goal (STG) Improve awareness of the sensation of a proper PF contraction. 11/06/22: Pt educated in Kegel in isolation of substitute muscles. STG Duration 11/27/22 progressed . Assisted Goal (LTG) Pt will be able to isolate a PF contraction without overuse of the outer abdominal, gluteal, and hip AD muscles. LTG Duration 01/28/23 Two Impairment PF weakness with urinary leakage with a strong urge. Short Term Goal (STG) Pt will be educated in urinary delay technique, and be able to move and get up/down comfortably without having the feeling of heaviness and having to go urgently. 11/06/22: Pt educated in movement/transfers with coordination of breathing and PF contractions. STG Duration 11/06/22 Public Health Veterinarian Goal (LTG) Strengthen the PF for pt to be able to control her urine and not have to wear adult diapers, or at the most a regular urinary incontinent pad during the day. LTG Duration 01/28/23 One Impairment Pt lacks appropriate self care HEP. Short Term Goal (STG) Education in proper methods for transfer with coordination of breathing, and proper vulvar/genital care. 11/06/22: Pt education in proper methods for transfers with coordination of breathing /PF contraction. STG Duration 11/06/22 partially met goal 11/06/22. Public Health Veterinarian Goal (LTG) Pt will be independent with a self care HEP of PF/core strengthening and hip ROM exercises. 11/06/22: Kegel in isolation of substitute muscles and again with pillow under hips. LTG Duration 01/28/23 progressed 11/06/22 . Assessment Summary Assessment Pt with urge urinary incontinence, and cytocele grade 2, due to weak pelvic floor and excessive use of substitute muscles. Pt receptive to recommendations of increasing fluid intake and further tracking of bladder and bowel movements. Pt has a better awarenes of coordinated breathing/PF contraction with transfers, proper fluid hydration needs, proper Kegel w/o excessive use of substitute muscles, and bladder irritants. Physical Therapy Plan Frequency and Duration Frequency of Treatment 1x/Week Plan of Care Start Date 10/30/22 Plan of Care End Date 01/28/23 Next Visit Focus/Plan Next Note Type Treatment Note Next Visit Plan Pt on wait list to get into therapy before 12/18/22 (needs fridays). Review bladder diary for improved fluid intake and BM's, review Kegels for proper contraction without use of substitute muscles, & Review Coordination of proper breaths with transfers. EMG biofeedback if vaginal electrode will fit lengthwise in vagina. Education: Proper vulvar/ genital care, coordination of proper breaths and PF contractions with ADLs, transfers, body mechanics and exercise. Proper posture. EX: Hip stretch (huseyin ER), trunk L SB stretch. 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 Strengthening Hip flex, ext, AD, ER. STM: (abdomen mid and lower)
--- NOTE | 2022-12-25 16:53 | PT.OTN ---
Current Diagnoses Unspecified urinary incontinence (12/25/22) Physical Therapy Treatment Note PT-OP-A Visit Information Start: 10/30/22 12:35 Freq: Status: Active Protocol: Document 12/25/22 13:51 LRN (Rec: 12/25/22 14:34 LRN [id number]) Out-Patient Physical Therapy Visit Information Visit Information Visit Type Treatment Note Visit Start Time 13:51 Visit Stop Time 14:33 Total Visit Minutes 42 Visit Number 3 Evaluation Information Evaluation Date 10/30/22 Precautions Precautions Pt reports osteopenia in LB and R hip and osteroporosis of the L hip. Hyste and sling for prolapse 2010, Lung CA stage I surgery that was successful 2018 PT-OP-B Current Condition Start: 10/30/22 12:35 Freq: Status: Active Protocol: Document 10/30/22 13:53 LRN (Rec: 10/30/22 16:27 LRN [id number]) Current Condition History of Current Condition Onset Date 3-4 yrs ago Current Complaints Having to wear 2 adult diapers during the day. History of Current Condition Was having difficulty getting to work in [place] without leaking; therefore started wearing diapers. 1 yr ago started wearing 2 diapers. Was taking care of grandson and had to use one on top of the other, but usually after getting home would toss the top one and use the bottom one for the rest of the day. Most days can get by with using just one . During the night usually can hold urine to get to the toilet. I was noted: pt needed to use BR at start and 1x during evaluation. Pt is R handed Prior Treatments and Tests Surgeries: Hyste & sling for bladder prolapse (unsure if has mesh placed or not) 2010, done in [place], [place] . Precautions given: Not to lift > 25# and not do sit ups. Future Testing and Treatments Planned Oncologist 09/2023 Seeing referring physician/ hot wort settler in December 2022. Treatment Goals Patient/Caregiver Goals Pt goals: 1. Be able to control her urine and not have to wear adult diapers. 2. Be able to move and get up /down comfortably without having the feeling of heaviness and having to go urgently. 3. Not have pain at nighttime when having an urge to go to the bathroom. 4. Not have to get up every 2 hours in the night to use the bathroom. Personal Factors Other Personal Factors That May Effect Lung CA surgery with good Therapy/Recovery results 2018. Laser was use to remove a small portion of the R lung. Osteroporosis of the L hip and osteopenia of spine and R hip. Surgical sling for prolapse place 2010. PT-OP-C Subjective Start: 10/30/22 12:35 Freq: Status: Active Protocol: Document 12/25/22 13:51 LRN (Rec: 12/25/22 14:34 LRN [id number]) OP-PT Subjective Patient Comments Patient Comments Doing okay. Nighttime stream is slow. After drinking coffee the stream is steady and heavier flow. PT-OP-I Pelvic Floor Start: 10/30/22 12:35 Freq: Status: Active Protocol: Document 10/30/22 13:53 LRN (Rec: 10/30/22 16:27 LRN [id number]) Pelvic Floor Assessment Urine Pelvic Floor Surgery Yes Urinary Symptoms Urge Sensation,Falling Out Feeling/Heavy,Pain Leakage Size Large Leakage Cause Urge Voiding Frequency every 2 hours Nocturia 3-4 times, every 2 hours Pads Used In 24 Hours 2 Urine Pad Type Depends Bowel Bowel Symptoms Constipation Bowel Movement Frequency Daily, in mornings. [place] Stool Chart Comments Stool types range 2-4. Pt takes stool softner and uses fiber in her diet. Pelvic Clock Pelvic Clock 12-3 Atrophy Pelvic Clock 3-6 Atrophy Pelvic Clock 6-9 Atrophy Pelvic Clock 9-12 Atrophy Prolapse Cystocele Grade 2 Perineal Descent Resting Present Bearing Present Contraction Ability Voluntary Contraction Weak Manual Muscle Testing Left 2 Manual Muscle Testing Right 1 Manual Muscle Testing Anterior 0 Manual Muscle Testing Posterior 3 Muscle Endurance (Seconds) 3 Comments Pelvic Floor Comments PF tissues externally appears dry and perineum is read around vaginal canal. PF contraction pt uses substitute ms of abdomen, gluteals and hip AD's, and holds breath. PT-OP-J Posture/Palpation/Skin Start: 10/30/22 12:35 Freq: Status: Active Protocol: Document 10/30/22 13:53 LRN (Rec: 10/30/22 16:27 LRN [id number]) Posture Evaluation Position Standing Head/C-Spine Posture Forward Head T-Spine Posture Increased Kyphosis L-Spine Posture Decreased Lordosis Shoulder Posture (L) Elevated Hip Posture (L) Externally Rotated Comments Posture Comments Holds L arm in AB. R breast is low. C-curve of spine with apex on the left. PT-OP-K Range of Motion Start: 10/30/22 12:35 Freq: Status: Active Protocol: Document 10/30/22 13:53 LRN (Rec: 10/30/22 16:27 LRN [id number]) Lumbar Spine Range of Motion Lumbar Spine Active Degrees Testing Position Standing Flexion 55 Extension 5 Rotation Left 20 Rotation Right 20 Lateral Flexion Left 10 Lateral Flexion Right 10 Hip Goniometric Range of Motion Hip Right Passive Testing Position Supine Internal Rotation 45 External Rotation 50 Comments Measurements are approximations. Left Passive Testing Position Supine Internal Rotation 30 External Rotation 75 Comments Measurements are approximations. PT-OP-M Strength Start: 10/30/22 12:35 Freq: Status: Active Protocol: Document 10/30/22 13:53 LRN (Rec: 10/30/22 16:27 LRN [id number]) Trunk Strength Trunk Manual Muscle Testing Core Stabilization Not able to maintain core stability with MMT of LE's. Hip Strength Hip Manual Muscle Testing Right Flexion (L2) 3 Fair Extension (S1) 3 Fair Abduction 5 Normal Adduction 3 Fair External Rotation 5 Normal Internal Rotation 5 Normal Left Flexion (L2) 3 Fair Extension (S1) 3 Fair Abduction 5 Normal Adduction 4+ Good+ External Rotation 4 Good Internal Rotation 5 Normal PT-OP-Q Treatments Start: 10/30/22 12:35 Freq: Status: Active Protocol: Document 12/25/22 13:51 LRN (Rec: 12/25/22 14:34 LRN [id number]) Therapeutic Exercises Supine Exercises Deep Breathing Supine Exercise Name Deep Breathing review Reps/Minutes 1' Kegel on Wedge Supine Exercise Name Kegels on Wedge w/o substitute ms Reps/Minutes 3' Comments Cuing for self cuing w/hands on belly/gluts. Kegel awareness Supine Exercise Name Kegel w/o use of substitute muscles Reps/Minutes 4' Comments Phys & v cuing with self cuing with hands on belly and gluts . Other Exercises Transfers w/PF/breathing Other Exercise Name Transfers w/coordinated proper breathing/PF contraction Side right Reps/Minutes 4' Comments Cuing for proper coordination of PF/Breathing/movement Self-Care/Home Management Treatment Education Other Education Reviewed and discussed at length the outcome of the Bladder dairy, and discussed fluid intake and voiding schedule. Suggestions for fluid intake (coffee 1st of morning) and discussed timing, bladder retraining, and frequency of voiding days and at nigttime. PT-OP-T Assessment and Plan Start: 10/30/22 12:35 Freq: Status: Active Protocol: Document 12/25/22 13:51 LRN (Rec: 12/25/22 14:34 LRN [id number]) Physical Therapy Assessment Goals Four Impairment Increased frequency of urination every 2 hours or less Short Term Goal (STG) Decrease pelvic pain at nighttime when having an urge to go to the bathroom, and eliminate the need for a pad at nighttime. 12/25/22: Deep breathing has helped to decrease the abdominal pain with nighttime urges. Pt not having to wear diaper pad at night. STG Duration 11/27/22 (12/25/22: MET GOAL) Residential Goal (LTG) Pt will not have to get up every 2 hours in the night to use the bathroom. LTG Duration 01/28/23 Three Impairment Not able to perform a PF contraction in the absence of abdominal/glut ms Short Term Goal (STG) Improve awareness of the sensation of a proper PF contraction. 11/06/22: Pt educated in Kegel in isolation of substitute muscles. 12/25/22: Pt reporting she can feel a PF contraction. STG Duration 11/27/22 12/25/22: MET GOAL Residential Goal (LTG) Pt will be able to isolate a PF contraction without overuse of the outer abdominal, gluteal, and hip AD muscles. 12/25/22: Minimal contraction felt at outer abdominal, gluteal, and hip AD muscles with PF contraction. LTG Duration 01/28/23 12/25/22: MET GOAL Two Impairment PF weakness with urinary leakage with a strong urge. Short Term Goal (STG) Pt will be educated in urinary delay technique, and be able to move and get up/down comfortably without having the feeling of heaviness and having to go urgently. 11/06/22: Pt educated in movement/transfers with coordination of breathing and PF contractions. 12/25/22: Educated pt in urinary delay technique with handout issued. STG Duration 11/06/22 progressed 12/25/22 Real Estate Broker Goal (LTG) Strengthen the PF for pt to be able to control her urine and not have to wear adult diapers, or at the most a regular urinary incontinent pad during the day. LTG Duration 01/28/23 One Impairment Pt lacks appropriate self care HEP. Short Term Goal (STG) Education in proper methods for transfer with coordination of breathing, and proper vulvar/genital care. 11/06/22: Pt education in proper methods for transfers with coordination of breathing /PF contraction. STG Duration 11/06/22 met goal for transfers 11/06/22. Residential Goal (LTG) Pt will be independent with a self care HEP of PF/core strengthening and hip ROM exercises. 11/06/22: Kegel in isolation of substitute muscles and again with pillow under hips. LTG Duration 01/28/23 progressed 11/06/22 . Assessment Summary Assessment Per bladder diary review, the pt appears to be typically voiding every 1-2 hrs for 10 sec urination. She mostly drinks over 1/2 her body weight in ozs, including 16oz of coffee. Pt appears, through external palpation, to be isolating the PF with Kegels. Pt needed review of coordination of proper breaths with transfers due to poor recall. Physical Therapy Plan Frequency and Duration Frequency of Treatment 1x/Week Plan of Care Start Date 10/30/22 Plan of Care End Date 01/28/23 Next Visit Focus/Plan Next Note Type Treatment Note Next Visit Plan EMG biofeedback if vaginal electrode will fit lengthwise in vagina. Education: Proper vulvar/ genital care, coordination of proper breaths and PF contractions with ADLs, body mechanics and exercise. Proper posture. EX: Hip stretch (uhseyin ER), trunk L SB stretch. 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 Strengthening Hip flex, ext, AD, ER. STM: (abdomen mid and lower)
--- NOTE | 2023-01-01 17:59 | PT.OTN ---
Current Diagnoses Unspecified urinary incontinence (01/01/23) Physical Therapy Treatment Note PT-OP-A Visit Information Start: 10/30/22 12:35 Freq: Status: Active Protocol: Document 01/01/23 13:50 LRN (Rec: 01/01/23 14:37 LRN [id number]) Out-Patient Physical Therapy Visit Information Visit Information Visit Type Treatment Note Visit Start Time 13:50 Visit Stop Time 14:36 Total Visit Minutes 46 Visit Number 4 Evaluation Information Evaluation Date 10/30/22 Precautions Precautions Pt reports osteopenia in LB and R hip and osteroporosis of the L hip. Hyste and sling for prolapse 2010, Lung CA stage I surgery that was successful 2018 PT-OP-B Current Condition Start: 10/30/22 12:35 Freq: Status: Active Protocol: Document 10/30/22 13:53 LRN (Rec: 10/30/22 16:27 LRN [id number]) Current Condition History of Current Condition Onset Date 3-4 yrs ago Current Complaints Having to wear 2 adult diapers during the day. History of Current Condition Was having difficulty getting to work in [place] without leaking; therefore started wearing diapers. 1 yr ago started wearing 2 diapers. Was taking care of grandson and had to use one on top of the other, but usually after getting home would toss the top one and use the bottom one for the rest of the day. Most days can get by with using just one . During the night usually can hold urine to get to the toilet. I was noted: pt needed to use BR at start and 1x during evaluation. Pt is R handed Prior Treatments and Tests Surgeries: Hyste & sling for bladder prolapse (unsure if has mesh placed or not) 2010, done in [place], [place] . Precautions given: Not to lift > 25# and not do sit ups. Future Testing and Treatments Planned Oncologist 09/2023 Seeing referring physician/ dance artist in December 2022. Treatment Goals Patient/Caregiver Goals Pt goals: 1. Be able to control her urine and not have to wear adult diapers. 2. Be able to move and get up /down comfortably without having the feeling of heaviness and having to go urgently. 3. Not have pain at nighttime when having an urge to go to the bathroom. 4. Not have to get up every 2 hours in the night to use the bathroom. Personal Factors Other Personal Factors That May Effect Lung CA surgery with good Therapy/Recovery results 2018. Laser was use to remove a small portion of the R lung. Osteroporosis of the L hip and osteopenia of spine and R hip. Surgical sling for prolapse place 2010. PT-OP-C Subjective Start: 10/30/22 12:35 Freq: Status: Active Protocol: Document 01/01/23 13:50 LRN (Rec: 01/01/23 14:37 LRN [id number]) OP-PT Subjective Patient Comments Patient Comments More time between night voidings 2-3 hrs between voids . During the day every 3-4 hrs except today every 2-3 hrs and more leakage. PT-OP-I Pelvic Floor Start: 10/30/22 12:35 Freq: Status: Active Protocol: Document 10/30/22 13:53 LRN (Rec: 10/30/22 16:27 LRN [id number]) Pelvic Floor Assessment Urine Pelvic Floor Surgery Yes Urinary Symptoms Urge Sensation,Falling Out Feeling/Heavy,Pain Leakage Size Large Leakage Cause Urge Voiding Frequency every 2 hours Nocturia 3-4 times, every 2 hours Pads Used In 24 Hours 2 Urine Pad Type Depends Bowel Bowel Symptoms Constipation Bowel Movement Frequency Daily, in mornings. [place] Stool Chart Comments Stool types range 2-4. Pt takes stool softner and uses fiber in her diet. Pelvic Clock Pelvic Clock 12-3 Atrophy Pelvic Clock 3-6 Atrophy Pelvic Clock 6-9 Atrophy Pelvic Clock 9-12 Atrophy Prolapse Cystocele Grade 2 Perineal Descent Resting Present Bearing Present Contraction Ability Voluntary Contraction Weak Manual Muscle Testing Left 2 Manual Muscle Testing Right 1 Manual Muscle Testing Anterior 0 Manual Muscle Testing Posterior 3 Muscle Endurance (Seconds) 3 Comments Pelvic Floor Comments PF tissues externally appears dry and perineum is read around vaginal canal. PF contraction pt uses substitute ms of abdomen, gluteals and hip AD's, and holds breath. PT-OP-J Posture/Palpation/Skin Start: 10/30/22 12:35 Freq: Status: Active Protocol: Document 10/30/22 13:53 LRN (Rec: 10/30/22 16:27 LRN [id number]) Posture Evaluation Position Standing Head/C-Spine Posture Forward Head T-Spine Posture Increased Kyphosis L-Spine Posture Decreased Lordosis Shoulder Posture (L) Elevated Hip Posture (L) Externally Rotated Comments Posture Comments Holds L arm in AB. R breast is low. C-curve of spine with apex on the left. PT-OP-K Range of Motion Start: 10/30/22 12:35 Freq: Status: Active Protocol: Document 10/30/22 13:53 LRN (Rec: 10/30/22 16:27 LRN [id number]) Lumbar Spine Range of Motion Lumbar Spine Active Degrees Testing Position Standing Flexion 55 Extension 5 Rotation Left 20 Rotation Right 20 Lateral Flexion Left 10 Lateral Flexion Right 10 Hip Goniometric Range of Motion Hip Right Passive Testing Position Supine Internal Rotation 45 External Rotation 50 Comments Measurements are approximations. Left Passive Testing Position Supine Internal Rotation 30 External Rotation 75 Comments Measurements are approximations. PT-OP-M Strength Start: 10/30/22 12:35 Freq: Status: Active Protocol: Document 10/30/22 13:53 LRN (Rec: 10/30/22 16:27 LRN [id number]) Trunk Strength Trunk Manual Muscle Testing Core Stabilization Not able to maintain core stability with MMT of LE's. Hip Strength Hip Manual Muscle Testing Right Flexion (L2) 3 Fair Extension (S1) 3 Fair Abduction 5 Normal Adduction 3 Fair External Rotation 5 Normal Internal Rotation 5 Normal Left Flexion (L2) 3 Fair Extension (S1) 3 Fair Abduction 5 Normal Adduction 4+ Good+ External Rotation 4 Good Internal Rotation 5 Normal PT-OP-Q Treatments Start: 10/30/22 12:35 Freq: Status: Active Protocol: Document 01/01/23 13:50 LRN (Rec: 01/01/23 14:37 LRN [id number]) Therapeutic Exercises Supine Exercises Fig 4 stretch Supine Exercise Name Fig 4 stretch hold over: sequence: 4 breaths, knee ER, ankle ROM Side bilateral Reps/Minutes sequence x 2 Hip AD/Kegel Supine Exercise Name Wedge/Hip AD/Kegel Equipment Used [place] Reps/Minutes 5x hip AB with and without Kegel Hip AB/Kegel Supine Exercise Name Wedge/Hip AB/Kegel Equipment Used [place] [employer] Reps/Minutes 5x hip AB with and without Kegel Deep Breathing Supine Exercise Name Deep Breathing review Reps/Minutes 1' Other Exercises Transfers w/PF/breathing Other Exercise Name Transfers w/coordinated proper breathing/PF contraction Side right Comments Cuing for proper coordination of PF/Breathing/movement Self-Care/Home Management Treatment Education Other Education Discussed and educated pt in Proper vulvar/genital care. Edcuated pt in coordination of proper breaths/PF contraction with transfers, and PF contractions with ADLs. Activities Self-Care/Home Management Activities Issued & reviewed handout for Proper vulvar/genital care. Issued & reviewed HEP: Fig 4 stretch. PT-OP-T Assessment and Plan Start: 10/30/22 12:35 Freq: Status: Active Protocol: Document 01/01/23 13:50 LRN (Rec: 01/01/23 14:37 LRN [id number]) Physical Therapy Assessment Goals Four Impairment Increased frequency of urination every 2 hours or less Short Term Goal (STG) Decrease pelvic pain at nighttime when having an urge to go to the bathroom, and eliminate the need for a pad at nighttime. 12/25/22: Deep breathing has helped to decrease the abdominal pain with nighttime urges. Pt not having to wear diaper pad at night. STG Duration 11/27/22 (12/25/22: MET GOAL) Super[employer] Goal (LTG) Pt will not have to get up every 2 hours in the night to use the bathroom. 01/01/23: Every 2 hrs in nighttime part of days this week. LTG Duration 01/28/23 progressing 01/01/23 Three Impairment Not able to perform a PF contraction in the absence of abdominal/glut ms Short Term Goal (STG) Improve awareness of the sensation of a proper PF contraction. 11/06/22: Pt educated in Kegel in isolation of substitute muscles. 12/25/22: Pt reporting she can feel a PF contraction. STG Duration 11/27/22 12/25/22: MET GOAL Super[employer] Goal (LTG) Pt will be able to isolate a PF contraction without overuse of the outer abdominal, gluteal, and hip AD muscles. 12/25/22: Minimal contraction felt at outer abdominal, gluteal, and hip AD muscles with PF contraction. LTG Duration 01/28/23 12/25/22: MET GOAL Two Impairment PF weakness with urinary leakage with a strong urge. Short Term Goal (STG) Pt will be educated in urinary delay technique, and be able to move and get up/down comfortably without having the feeling of heaviness and having to go urgently. 11/06/22: Pt educated in movement/transfers with coordination of breathing and PF contractions. 12/25/22: Educated pt in urinary delay technique with handout issued. STG Duration 11/06/22 progressed 12/25/22 Fdc Goal (LTG) Strengthen the PF for pt to be able to control her urine and not have to wear adult diapers, or at the most a regular urinary incontinent pad during the day. LTG Duration 01/28/23 One Impairment Pt lacks appropriate self care HEP. Short Term Goal (STG) Education in proper methods for transfer with coordination of breathing, and proper vulvar/genital care. 11/06/22: Pt education in proper methods for transfers with coordination of breathing /PF contraction. STG Duration 11/06/22 (01/01/23: MET GOAL) Fdc Goal (LTG) Pt will be independent with a self care HEP of PF/core strengthening and hip ROM exercises. 11/06/22: Kegel in isolation of substitute muscles and again with pillow under hips. 01/01/23: HEP: Fig 4 stretch with sequence of breath, & hip , ankle mvmt LTG Duration 01/28/23 progressed 01/01/23. Assessment Summary Assessment Rehab for urge urinary incontinence, and cytocele grade 2, due to weak pelvic floor. Pt conts to work on coordination of PF tightening with breathwork. Pt has improved her time between voids from 1-2 hrs to 2 hrs. She is realizing her voiding frequencies are more after drinking coffee and considering reducing her coffee intake. Pt is open to trying caffeine free coffee as substitute. Pt is very tight with hip ER's and was able to tolerate fig 4 stretch without pain. More training needed for transfers/breath/PF contractions. Pt very receptive to education regarding PF and bladder irritants. Physical Therapy Plan Frequency and Duration Frequency of Treatment 1x/Week Plan of Care Start Date 10/30/22 Plan of Care End Date 01/28/23 Next Visit Focus/Plan Next Note Type Treatment Note Next Visit Plan Review issued HEP: Hip fig 4 stretch with nerve glides (huseyin ER), and PF w/hip AB/AD. EMG biofeedback if vaginal electrode will fit lengthwise in vagina. Education: body mechanics and exercise. Proper posture. EX: trunk L SB stretch. 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 Strengthening Hip flex, ext, AD, ER. STM: (abdomen mid and lower)
--- NOTE | 2023-01-08 14:41 | PT.OTN ---
Current Diagnoses Unspecified urinary incontinence (01/08/23) Physical Therapy Treatment Note PT-OP-A Visit Information Start: 10/30/22 12:35 Freq: Status: Active Protocol: Document 01/08/23 13:51 LRN (Rec: 01/08/23 14:40 LRN [id number]) Out-Patient Physical Therapy Visit Information Visit Information Visit Type Treatment Note Visit Start Time 13:51 Visit Stop Time 14:32 Total Visit Minutes 41 Visit Number 5 Evaluation Information Evaluation Date 10/30/22 Precautions Precautions Pt reports osteopenia in LB and R hip and osteroporosis of the L hip. Hyste and sling for prolapse 2010, Lung CA stage I surgery that was successful 2018 PT-OP-B Current Condition Start: 10/30/22 12:35 Freq: Status: Active Protocol: Document 10/30/22 13:53 LRN (Rec: 10/30/22 16:27 LRN [id number]) Current Condition History of Current Condition Onset Date 3-4 yrs ago Current Complaints Having to wear 2 adult diapers during the day. History of Current Condition Was having difficulty getting to work in [place] without leaking; therefore started wearing diapers. 1 yr ago started wearing 2 diapers. Was taking care of grandson and had to use one on top of the other, but usually after getting home would toss the top one and use the bottom one for the rest of the day. Most days can get by with using just one . During the night usually can hold urine to get to the toilet. I was noted: pt needed to use BR at start and 1x during evaluation. Pt is R handed Prior Treatments and Tests Surgeries: Hyste & sling for bladder prolapse (unsure if has mesh placed or not) 2010, done in [place], [place] . Precautions given: Not to lift > 25# and not do sit ups. Future Testing and Treatments Planned Oncologist 09/2023 Seeing referring physician/ licensed marine engineer in December 2022. Treatment Goals Patient/Caregiver Goals Pt goals: 1. Be able to control her urine and not have to wear adult diapers. 2. Be able to move and get up /down comfortably without having the feeling of heaviness and having to go urgently. 3. Not have pain at nighttime when having an urge to go to the bathroom. 4. Not have to get up every 2 hours in the night to use the bathroom. Personal Factors Other Personal Factors That May Effect Lung CA surgery with good Therapy/Recovery results 2018. Laser was use to remove a small portion of the R lung. Osteroporosis of the L hip and osteopenia of spine and R hip. Surgical sling for prolapse place 2010. PT-OP-C Subjective Start: 10/30/22 12:35 Freq: Status: Active Protocol: Document 01/08/23 13:51 LRN (Rec: 01/08/23 14:40 LRN [id number]) OP-PT Subjective Patient Comments Patient Comments States has been getting exercise in. Getting up every 2-3 hrs, usually 2.5-3 hrs in nighttime. Still wearing adult diapers, but less leakage. PT-OP-I Pelvic Floor Start: 10/30/22 12:35 Freq: Status: Active Protocol: Document 10/30/22 13:53 LRN (Rec: 10/30/22 16:27 LRN [id number]) Pelvic Floor Assessment Urine Pelvic Floor Surgery Yes Urinary Symptoms Urge Sensation,Falling Out Feeling/Heavy,Pain Leakage Size Large Leakage Cause Urge Voiding Frequency every 2 hours Nocturia 3-4 times, every 2 hours Pads Used In 24 Hours 2 Urine Pad Type Depends Bowel Bowel Symptoms Constipation Bowel Movement Frequency Daily, in mornings. [place] Stool Chart Comments Stool types range 2-4. Pt takes stool softner and uses fiber in her diet. Pelvic Clock Pelvic Clock 12-3 Atrophy Pelvic Clock 3-6 Atrophy Pelvic Clock 6-9 Atrophy Pelvic Clock 9-12 Atrophy Prolapse Cystocele Grade 2 Perineal Descent Resting Present Bearing Present Contraction Ability Voluntary Contraction Weak Manual Muscle Testing Left 2 Manual Muscle Testing Right 1 Manual Muscle Testing Anterior 0 Manual Muscle Testing Posterior 3 Muscle Endurance (Seconds) 3 Comments Pelvic Floor Comments PF tissues externally appears dry and perineum is read around vaginal canal. PF contraction pt uses substitute ms of abdomen, gluteals and hip AD's, and holds breath. PT-OP-J Posture/Palpation/Skin Start: 10/30/22 12:35 Freq: Status: Active Protocol: Document 10/30/22 13:53 LRN (Rec: 10/30/22 16:27 LRN [id number]) Posture Evaluation Position Standing Head/C-Spine Posture Forward Head T-Spine Posture Increased Kyphosis L-Spine Posture Decreased Lordosis Shoulder Posture (L) Elevated Hip Posture (L) Externally Rotated Comments Posture Comments Holds L arm in AB. R breast is low. C-curve of spine with apex on the left. PT-OP-K Range of Motion Start: 10/30/22 12:35 Freq: Status: Active Protocol: Document 10/30/22 13:53 LRN (Rec: 10/30/22 16:27 LRN [id number]) Lumbar Spine Range of Motion Lumbar Spine Active Degrees Testing Position Standing Flexion 55 Extension 5 Rotation Left 20 Rotation Right 20 Lateral Flexion Left 10 Lateral Flexion Right 10 Hip Goniometric Range of Motion Hip Right Passive Testing Position Supine Internal Rotation 45 External Rotation 50 Comments Measurements are approximations. Left Passive Testing Position Supine Internal Rotation 30 External Rotation 75 Comments Measurements are approximations. PT-OP-M Strength Start: 10/30/22 12:35 Freq: Status: Active Protocol: Document 10/30/22 13:53 LRN (Rec: 10/30/22 16:27 LRN [id number]) Trunk Strength Trunk Manual Muscle Testing Core Stabilization Not able to maintain core stability with MMT of LE's. Hip Strength Hip Manual Muscle Testing Right Flexion (L2) 3 Fair Extension (S1) 3 Fair Abduction 5 Normal Adduction 3 Fair External Rotation 5 Normal Internal Rotation 5 Normal Left Flexion (L2) 3 Fair Extension (S1) 3 Fair Abduction 5 Normal Adduction 4+ Good+ External Rotation 4 Good Internal Rotation 5 Normal PT-OP-Q Treatments Start: 10/30/22 12:35 Freq: Status: Active Protocol: Document 01/08/23 13:51 LRN (Rec: 01/08/23 14:40 LRN [id number]) Therapeutic Exercises Supine Exercises Fig 4 stretch Supine Exercise Name Fig 4 stretch hold over: sequence: 4 breaths, knee ER, ankle ROM Side bilateral Reps/Minutes sequence x 2 Hip AD/Kegel Supine Exercise Name Wedge/Hip AD/Kegel Equipment Used [place] TBand Reps/Minutes 5x hip AB with and without Kegel Hip AB/Kegel Supine Exercise Name Wedge/Hip AB/Kegel Equipment Used [place] TBand Reps/Minutes 5x hip AB with and without Kegel Deep Breathing Supine Exercise Name Deep Breathing review Reps/Minutes 2' Comments Cued to slow breath, othewise good abdominal excursion. Kegel on Wedge Supine Exercise Name Kegels on Wedge w/o substitute ms Reps/Minutes 2' Comments Minimal cuing needed for breath and isolation of Kegel Standing Exercises L SB stretch Standing Exercise Name L SB stretch Side left Reps/Minutes 10 SH x 10 Other Exercises Transfers w/PF/breathing Other Exercise Name Transfers w/coordinated proper breathing/PF contraction Side right Comments Cuing for proper coordination of PF/Breathing/movement Self-Care/Home Management Treatment Activities Self-Care/Home Management Activities Issued & reviewed HEP: Standing trunk L SB stretch. PT-OP-T Assessment and Plan Start: 10/30/22 12:35 Freq: Status: Active Protocol: Document 01/08/23 13:51 LRN (Rec: 01/08/23 14:40 LRN [id number]) Physical Therapy Assessment Goals Four Impairment Increased frequency of urination every 2 hours or less Short Term Goal (STG) Decrease pelvic pain at nighttime when having an urge to go to the bathroom, and eliminate the need for a pad at nighttime. 12/25/22: Deep breathing has helped to decrease the abdominal pain with nighttime urges. Pt not having to wear diaper pad at night. STG Duration 11/27/22 (12/25/22: MET GOAL) Fpc Goal (LTG) Pt will not have to get up every 2 hours in the night to use the bathroom. 01/01/23: Every 2 hrs in nighttime part of days this week. LTG Duration 01/28/23 (01/08/23: MET GOAL) Three Impairment Not able to perform a PF contraction in the absence of abdominal/glut ms Short Term Goal (STG) Improve awareness of the sensation of a proper PF contraction. 11/06/22: Pt educated in Kegel in isolation of substitute muscles. 12/25/22: Pt reporting she can feel a PF contraction. STG Duration 11/27/22 12/25/22: MET GOAL Fpc Goal (LTG) Pt will be able to isolate a PF contraction without overuse of the outer abdominal, gluteal, and hip AD muscles. 12/25/22: Minimal contraction felt at outer abdominal, gluteal, and hip AD muscles with PF contraction. LTG Duration 01/28/23 12/25/22: MET GOAL Two Impairment PF weakness with urinary leakage with a strong urge. Short Term Goal (STG) Pt will be educated in urinary delay technique, and be able to move and get up/down comfortably without having the feeling of heaviness and having to go urgently. 11/06/22: Pt educated in movement/transfers with coordination of breathing and PF contractions. 12/25/22: Educated pt in urinary delay technique with handout issued. STG Duration 11/06/22 progressed 12/25/22 Fpc Goal (LTG) Strengthen the PF for pt to be able to control her urine and not have to wear adult diapers, or at the most a regular urinary incontinent pad during the day. LTG Duration 01/28/23 One Impairment Pt lacks appropriate self care HEP. Short Term Goal (STG) Education in proper methods for transfer with coordination of breathing, and proper vulvar/genital care. 11/06/22: Pt education in proper methods for transfers with coordination of breathing /PF contraction. STG Duration 11/06/22 (01/01/23: MET GOAL) Fpc Goal (LTG) Pt will be independent with a self care HEP of PF/core strengthening and hip ROM exercises. 11/06/22: Kegel in isolation of substitute muscles and again with pillow under hips. 01/01/23: HEP: Fig 4 stretch with sequence of breath, & hip , ankle mvmt LTG Duration 01/28/23 progressed 01/01/23. Assessment Summary Assessment Pt improved in her ability to sleep at night and is able to sleep longer than 2 hrs before getting up to use the bathroom (2.5-3 hrs). She shows good recall of her issued HEP; therefore is being compliant with ex. Pt initially with trunk L SB stretch, caused her upper body to shift to the left. Correction of L trunk shift by 1-trunk L SB stretch with bend only at trunk (no shift of hips) or 2-L lateral shift of hip to wall. Will need to monitor appropriateness of trunk L SB stretch. Physical Therapy Plan Frequency and Duration Frequency of Treatment 1x/Week Plan of Care Start Date 10/30/22 Plan of Care End Date 01/28/23 Next Visit Focus/Plan Next Note Type Treatment Note Next Visit Plan Assess response to EX: trunk L SB stretch. EMG biofeedback if vaginal electrode will fit lengthwise in vagina. Education: Proper posture. 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 Strengthening Hip flex, ext, AD, ER. STM: (abdomen mid and lower)
--- NOTE | 2023-01-15 16:34 | PT.OTN ---
Current Diagnoses Unspecified urinary incontinence (01/15/23) Physical Therapy Treatment Note PT-OP-A Visit Information Start: 10/30/22 12:35 Freq: Status: Active Protocol: Document 01/15/23 13:47 LRN (Rec: 01/15/23 14:28 LRN [id number]) Out-Patient Physical Therapy Visit Information Visit Information Visit Type Treatment Note Visit Start Time 13:47 Visit Stop Time 14:27 Total Visit Minutes 40 Visit Number 6 Evaluation Information Evaluation Date 10/30/22 Precautions Precautions Pt reports osteopenia in LB and R hip and osteroporosis of the L hip. Hyste and sling for prolapse 2010, Lung CA stage I surgery that was successful 2018 PT-OP-B Current Condition Start: 10/30/22 12:35 Freq: Status: Active Protocol: Document 10/30/22 13:53 LRN (Rec: 10/30/22 16:27 LRN [id number]) Current Condition History of Current Condition Onset Date 3-4 yrs ago Current Complaints Having to wear 2 adult diapers during the day. History of Current Condition Was having difficulty getting to work in [place] without leaking; therefore started wearing diapers. 1 yr ago started wearing 2 diapers. Was taking care of grandson and had to use one on top of the other, but usually after getting home would toss the top one and use the bottom one for the rest of the day. Most days can get by with using just one . During the night usually can hold urine to get to the toilet. I was noted: pt needed to use BR at start and 1x during evaluation. Pt is R handed Prior Treatments and Tests Surgeries: Hyste & sling for bladder prolapse (unsure if has mesh placed or not) 2010, done in [place], [place] . Precautions given: Not to lift > 25# and not do sit ups. Future Testing and Treatments Planned Oncologist 09/2023 Seeing referring physician/ heritage consultant in December 2022. Treatment Goals Patient/Caregiver Goals Pt goals: 1. Be able to control her urine and not have to wear adult diapers. 2. Be able to move and get up /down comfortably without having the feeling of heaviness and having to go urgently. 3. Not have pain at nighttime when having an urge to go to the bathroom. 4. Not have to get up every 2 hours in the night to use the bathroom. Personal Factors Other Personal Factors That May Effect Lung CA surgery with good Therapy/Recovery results 2018. Laser was use to remove a small portion of the R lung. Osteroporosis of the L hip and osteopenia of spine and R hip. Surgical sling for prolapse place 2010. PT-OP-C Subjective Start: 10/30/22 12:35 Freq: Status: Active Protocol: Document 01/15/23 13:47 LRN (Rec: 01/15/23 14:28 LRN [id number]) OP-PT Subjective Patient Comments Patient Comments Nighttime is improving, close to 2-3.5 hrs between voids. Daytime is same. Next couple of weeks won't have to take care of grandson, so thinks she will be able to get to the bathroom more quickly. States she is down to wearing one diaper per day. PT-OP-I Pelvic Floor Start: 10/30/22 12:35 Freq: Status: Active Protocol: Document 01/15/23 13:47 LRN (Rec: 01/15/23 14:28 LRN [id number]) Pelvic Floor Assessment SEMG (uV) Baseline 0.5 Quick Contraction 2.4 10 Second Contraction 2.9 Recruitment Pattern Good Relaxation Good Holding Poor/Slow Stability of Hold Poor/Slow SEMG Stability of Rest Good Comments Pelvic Floor Comments Quick Flicks: 10x: Avg work is 2.4 uV's, Avg rest is 1.9 uV's 20 reps: Avg work is 2.8 uV's, Avg rest is 2.0 uV's Long Holds: 10x: Avg work is 2.9 uV's, avg rest is 0.7 uV's. 20x: Avg work is 2.9 uV's, avg rest is 0.6 uV's. PT-OP-J Posture/Palpation/Skin Start: 10/30/22 12:35 Freq: Status: Active Protocol: Document 10/30/22 13:53 LRN (Rec: 10/30/22 16:27 LRN [id number]) Posture Evaluation Position Standing Head/C-Spine Posture Forward Head T-Spine Posture Increased Kyphosis L-Spine Posture Decreased Lordosis Shoulder Posture (L) Elevated Hip Posture (L) Externally Rotated Comments Posture Comments Holds L arm in AB. R breast is low. C-curve of spine with apex on the left. PT-OP-K Range of Motion Start: 10/30/22 12:35 Freq: Status: Active Protocol: Document 10/30/22 13:53 LRN (Rec: 10/30/22 16:27 LRN [id number]) Lumbar Spine Range of Motion Lumbar Spine Active Degrees Testing Position Standing Flexion 55 Extension 5 Rotation Left 20 Rotation Right 20 Lateral Flexion Left 10 Lateral Flexion Right 10 Hip Goniometric Range of Motion Hip Right Passive Testing Position Supine Internal Rotation 45 External Rotation 50 Comments Measurements are approximations. Left Passive Testing Position Supine Internal Rotation 30 External Rotation 75 Comments Measurements are approximations. PT-OP-M Strength Start: 10/30/22 12:35 Freq: Status: Active Protocol: Document 10/30/22 13:53 LRN (Rec: 10/30/22 16:27 LRN [id number]) Trunk Strength Trunk Manual Muscle Testing Core Stabilization Not able to maintain core stability with MMT of LE's. Hip Strength Hip Manual Muscle Testing Right Flexion (L2) 3 Fair Extension (S1) 3 Fair Abduction 5 Normal Adduction 3 Fair External Rotation 5 Normal Internal Rotation 5 Normal Left Flexion (L2) 3 Fair Extension (S1) 3 Fair Abduction 5 Normal Adduction 4+ Good+ External Rotation 4 Good Internal Rotation 5 Normal PT-OP-Q Treatments Start: 10/30/22 12:35 Freq: Status: Active Protocol: Document 01/15/23 13:47 LRN (Rec: 01/15/23 14:28 LRN [id number]) Therapeutic Exercises Supine Exercises PF Long Holds Supine Exercise Name PF Long Holds in isolation of subtitute ms/with EMG biofeedback Comments See above for PF strength. Xtra time for training of exercise. PF Quick Flicks Supine Exercise Name Quick Flicks in isolation of subtitute ms/with EMG biofeedback Reps/Minutes 20x Comments See above for PF strength. Xtra time for electrode placement/training. PT-OP-T Assessment and Plan Start: 10/30/22 12:35 Freq: Status: Active Protocol: Document 01/15/23 13:47 LRN (Rec: 01/15/23 14:28 LRN [id number]) Physical Therapy Assessment Goals Four Impairment Increased frequency of urination every 2 hours or less Short Term Goal (STG) Decrease pelvic pain at nighttime when having an urge to go to the bathroom, and eliminate the need for a pad at nighttime. 12/25/22: Deep breathing has helped to decrease the abdominal pain with nighttime urges. Pt not having to wear diaper pad at night. STG Duration 11/27/22 (12/25/22: MET GOAL) Detention Goal (LTG) Pt will not have to get up every 2 hours in the night to use the bathroom. 01/01/23: Every 2 hrs in nighttime part of days this week. LTG Duration 01/28/23 (01/08/23: MET GOAL) Three Impairment Not able to perform a PF contraction in the absence of abdominal/glut ms Short Term Goal (STG) Improve awareness of the sensation of a proper PF contraction. 11/06/22: Pt educated in Kegel in isolation of substitute muscles. 12/25/22: Pt reporting she can feel a PF contraction. STG Duration 11/27/22 12/25/22: MET GOAL Layer Out Goal (LTG) Pt will be able to isolate a PF contraction without overuse of the outer abdominal, gluteal, and hip AD muscles. 12/25/22: Minimal contraction felt at outer abdominal, gluteal, and hip AD muscles with PF contraction. LTG Duration 01/28/23 12/25/22: MET GOAL Two Impairment PF weakness with urinary leakage with a strong urge. Short Term Goal (STG) Pt will be educated in urinary delay technique, and be able to move and get up/down comfortably without having the feeling of heaviness and having to go urgently. 11/06/22: Pt educated in movement/transfers with coordination of breathing and PF contractions. 12/25/22: Educated pt in urinary delay technique with handout issued. STG Duration 11/06/22 progressed 12/25/22 Layer Out Goal (LTG) Strengthen the PF for pt to be able to control her urine and not have to wear adult diapers, or at the most a regular urinary incontinent pad during the day. LTG Duration 01/28/23 One Impairment Pt lacks appropriate self care HEP. Short Term Goal (STG) Education in proper methods for transfer with coordination of breathing, and proper vulvar/genital care. 11/06/22: Pt education in proper methods for transfers with coordination of breathing /PF contraction. STG Duration 11/06/22 (01/01/23: MET GOAL) Detention Goal (LTG) Pt will be independent with a self care HEP of PF/core strengthening and hip ROM exercises. 11/06/22: Kegel in isolation of substitute muscles and again with pillow under hips. 01/01/23: HEP: Fig 4 stretch with sequence of breath, & hip , ankle mvmt LTG Duration 01/28/23 progressed 01/01/23. Assessment Summary Assessment Did not have time for ex review; therefore will complete next visit. Extra time was taken for EMG PF strengthening for positioning, electrode placement and coordination with contractions /relaxations with computer generated program. Pt showed weakness with PF contractions of quick flicks and long holds of 2.4 uV's & 2.9 uV's respectively. She is able to hold the contraction at low level fairly consistent, but mostly shows immediate decline in strength of contraction. Further strengthening needed for quick flicks and long holds. Physical Therapy Plan Frequency and Duration Frequency of Treatment 1x/Week Plan of Care Start Date 10/30/22 Plan of Care End Date 01/28/23 Next Visit Focus/Plan Next Note Type Progress Note Next Visit Plan POC ends 01/28, reassess next visit. Assess response to trunk L SB. EX: trunk L SB stretch, PF strengthening for lateral laird and anterior PF. EMG biofeedback strengthening for Quick flicks and Long holds on/off Wedge. Education: Proper posture. 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 Strengthening Hip flex, ext, AD, ER. STM: (abdomen mid and lower)
--- NOTE | 2023-01-28 16:46 | PT-OP ANOTE ---
Pt is not able to attend therapy prior to end of plan of care; therefore the pt POC will be extended in order to complete her rehabilitation to achieve pt goals.
--- NOTE | 2023-01-28 17:08 | PT.OPPOC ---
Physical, Occupational & Speech Therapy At [facility] Current Diagnoses Unspecified urinary incontinence (01/15/23) Visit Care Team Role Provider Type SUHAS Lopes Attending Provider Physician Family Provider Primary Care Provider Referring Provider Specialty: Nursing Address: [address] [place] [address], [id number] Email: Plan Of Care PT-OP-T Assessment and Plan Start: 10/30/22 12:35 Freq: Status: Active Protocol: Document 01/28/23 16:47 LRN (Rec: 01/28/23 16:59 LRN [id number]) Physical Therapy Assessment Rehab Potential Rehabilitation Potential Good Evaluation Complexity Number of Personal Factors/Comorbidities 3 or More Number of Body Systems Impaired 4 or More Clinical Presentation at Evaluation Evolving Impairments Impairments Activity Tolerance,Posture,ROM ,Soft Tissue Mobility,Strength ,Transfers Other Impairments Constipation Dry pelvic floor external tissues. Goals Four Impairment Increased frequency of urination every 2 hours or less Short Term Goal (STG) Decrease pelvic pain at nighttime when having an urge to go to the bathroom, and eliminate the need for a pad at nighttime. 12/25/22: Deep breathing has helped to decrease the abdominal pain with nighttime urges. Pt not having to wear diaper pad at night. STG Duration 11/27/22 (12/25/22: MET GOAL) Major Account Representative Goal (LTG) Pt will not have to get up every 2 hours in the night to use the bathroom. 01/01/23: Every 2 hrs in nighttime part of days this week. LTG Duration 01/28/23 (01/08/23: MET GOAL) Three Impairment Not able to perform a PF contraction in the absence of abdominal/glut ms Short Term Goal (STG) Improve awareness of the sensation of a proper PF contraction. 11/06/22: Pt educated in Kegel in isolation of substitute muscles. 12/25/22: Pt reporting she can feel a PF contraction. STG Duration 11/27/22 12/25/22: MET GOAL Major Account Representative Goal (LTG) Pt will be able to isolate a PF contraction without overuse of the outer abdominal, gluteal, and hip AD muscles. 12/25/22: Minimal contraction felt at outer abdominal, gluteal, and hip AD muscles with PF contraction. LTG Duration 01/28/23 12/25/22: MET GOAL Two Impairment PF weakness with urinary leakage with a strong urge. Short Term Goal (STG) Pt will be educated in urinary delay technique, and be able to move and get up/down comfortably without having the feeling of heaviness and having to go urgently. 11/06/22: Pt educated in movement/transfers with coordination of breathing and PF contractions. 12/25/22: Educated pt in urinary delay technique with handout issued. STG Duration 03/12/23 progressed 12/25/22 Fdc Goal (LTG) Strengthen the PF for pt to be able to control her urine and not have to wear adult diapers, or at the most a regular urinary incontinent pad during the day. LTG Duration 03/29/23 One Impairment Pt lacks appropriate self care HEP. Short Term Goal (STG) Education in proper methods for transfer with coordination of breathing, and proper vulvar/genital care. 11/06/22: Pt education in proper methods for transfers with coordination of breathing /PF contraction. STG Duration 11/06/22 (01/01/23: MET GOAL) Fdc Goal (LTG) Pt will be independent with a self care HEP of PF/core strengthening and hip ROM exercises. 11/06/22: Kegel in isolation of substitute muscles and again with pillow under hips. 01/01/23: HEP: Fig 4 stretch with sequence of breath, & hip , ankle mvmt LTG Duration 04/28/23 progressed 01/01/23. Assessment Summary Assessment The pt has attended 7 therapy visits (including evaluation). She has made good progress overall, and is working towards reducing the need for an adult diaper during the day and to decrease the feeling of heaviness and having to go urgently to urinate. We are continuing to progress her with her HEP as she shows good knowledge and improved PF strength. Recently, per EMG biofeedback, pt showed weakness with PF contractions of quick flicks and long holds of 2.4 uV's & 2.9 uV's respectively. She is able to hold the contraction at low level, fairly consistently, but mostly shows immediate decline in strength of contraction. Further strengthening needed for quick flicks and especially long holds; therefore it is recommended the pt continue skilled physical therapy to work towards achieving her above stated goals. Physical Therapy Plan Frequency and Duration Frequency of Treatment 1x/Week Plan of Care Start Date 01/28/23 Plan of Care End Date 04/28/23 Therapeutic Interventions Therapeutic Interventions Home Exercise Program,Manual Therapy,Patient/Caregiver Education,Self-Care/Home Management,Soft Tissue Mobilization,Therapeutic Activities,Therapeutic Exercises Modalities Biofeedback,Cold Pack/Ice Massage,Electric Stimulation Other Referrals/Consults Referrals/Consults Recommended Assessment for possible use of topical estrogen therapies. Next Visit Focus/Plan Next Note Type Progress Note Next Visit Plan Assess next visit. Assess response to trunk L SB. EX: trunk L SB stretch, PF strengthening for lateral laird and anterior PF. EMG biofeedback strengthening for Quick flicks and Long holds on/off Wedge. Education: Proper posture. 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 Strengthening Hip flex, ext, AD, ER. STM: (abdomen mid and lower) Plan of Care Dates Plan of Care Start Date 01/28/23 Plan of Care End Date 04/28/23 Electronically Signed by: Carol Limon, PT 01/28/23 1451 If you are in agreement with this Plan of Care, please return a signed and dated copy. I have reviewed this Plan of Care and certify that the skilled therapy services above are required to meet the patient?s needs. Physician Signature Date Printed Name and Credentials Clinical Instructor Signature Printed Name and Credentials
--- NOTE | 2023-01-29 16:50 | PT.OTN ---
Current Diagnoses Unspecified urinary incontinence (01/29/23) Physical Therapy Treatment Note PT-OP-A Visit Information Start: 10/30/22 12:35 Freq: Status: Active Protocol: Document 01/29/23 12:33 LRN (Rec: 01/29/23 13:19 LRN [id number]) Out-Patient Physical Therapy Visit Information Visit Information Visit Type Progress Note Visit Start Time 12:33 Visit Stop Time 13:15 Total Visit Minutes 42 Visit Number 7 Evaluation Information Evaluation Date 10/30/22 Precautions Precautions Pt reports osteopenia in LB and R hip and osteroporosis of the L hip. Hyste and sling for prolapse 2010, Lung CA stage I surgery that was successful 2018 PT-OP-B Current Condition Start: 10/30/22 12:35 Freq: Status: Active Protocol: Document 10/30/22 13:53 LRN (Rec: 10/30/22 16:27 LRN [id number]) Current Condition History of Current Condition Onset Date 3-4 yrs ago Current Complaints Having to wear 2 adult diapers during the day. History of Current Condition Was having difficulty getting to work in [place] without leaking; therefore started wearing diapers. 1 yr ago started wearing 2 diapers. Was taking care of grandson and had to use one on top of the other, but usually after getting home would toss the top one and use the bottom one for the rest of the day. Most days can get by with using just one . During the night usually can hold urine to get to the toilet. I was noted: pt needed to use BR at start and 1x during evaluation. Pt is R handed Prior Treatments and Tests Surgeries: Hyste & sling for bladder prolapse (unsure if has mesh placed or not) 2010, done in [place], [place] . Precautions given: Not to lift > 25# and not do sit ups. 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 Treatment Goals Patient/Caregiver Goals Pt goals: 1. Be able to control her urine and not have to wear adult diapers. 2. Be able to move and get up /down comfortably without having the feeling of heaviness and having to go urgently. 3. Not have pain at nighttime when having an urge to go to the bathroom. 4. Not have to get up every 2 hours in the night to use the bathroom. Personal Factors Other Personal Factors That May Effect Lung CA surgery with good Therapy/Recovery results 2018. Laser was use to remove a small portion of the R lung. Osteroporosis of the L hip and osteopenia of spine and R hip. Surgical sling for prolapse place 2010. PT-OP-C Subjective Start: 10/30/22 12:35 Freq: Status: Active Protocol: Document 01/29/23 12:33 LRN (Rec: 01/29/23 13:19 LRN [id number]) OP-PT Subjective Patient Comments Patient Comments Thinks she is getting better, sometimes can hold her urine when standing. Last 6 months to year has pain in PF with sitting. PT-OP-I Pelvic Floor Start: 10/30/22 12:35 Freq: Status: Active Protocol: Document 01/15/23 13:47 LRN (Rec: 01/15/23 14:28 LRN [id number]) Pelvic Floor Assessment SEMG (uV) Baseline 0.5 Quick Contraction 2.4 10 Second Contraction 2.9 Recruitment Pattern Good Relaxation Good Holding Poor/Slow Stability of Hold Poor/Slow SEMG Stability of Rest Good Comments Pelvic Floor Comments Quick Flicks: 10x: Avg work is 2.4 uV's, Avg rest is 1.9 uV's 20 reps: Avg work is 2.8 uV's, Avg rest is 2.0 uV's Long Holds: 10x: Avg work is 2.9 uV's, avg rest is 0.7 uV's. 20x: Avg work is 2.9 uV's, avg rest is 0.6 uV's. PT-OP-J Posture/Palpation/Skin Start: 10/30/22 12:35 Freq: Status: Active Protocol: Document 10/30/22 13:53 LRN (Rec: 10/30/22 16:27 LRN [id number]) Posture Evaluation Position Standing Head/C-Spine Posture Forward Head T-Spine Posture Increased Kyphosis L-Spine Posture Decreased Lordosis Shoulder Posture (L) Elevated Hip Posture (L) Externally Rotated Comments Posture Comments Holds L arm in AB. R breast is low. C-curve of spine with apex on the left. PT-OP-K Range of Motion Start: 10/30/22 12:35 Freq: Status: Active Protocol: Document 10/30/22 13:53 LRN (Rec: 10/30/22 16:27 LRN [id number]) Lumbar Spine Range of Motion Lumbar Spine Active Degrees Testing Position Standing Flexion 55 Extension 5 Rotation Left 20 Rotation Right 20 Lateral Flexion Left 10 Lateral Flexion Right 10 Hip Goniometric Range of Motion Hip Right Passive Testing Position Supine Internal Rotation 45 External Rotation 50 Comments Measurements are approximations. Left Passive Testing Position Supine Internal Rotation 30 External Rotation 75 Comments Measurements are approximations. PT-OP-M Strength Start: 10/30/22 12:35 Freq: Status: Active Protocol: Document 10/30/22 13:53 LRN (Rec: 10/30/22 16:27 LRN [id number]) Trunk Strength Trunk Manual Muscle Testing Core Stabilization Not able to maintain core stability with MMT of LE's. Hip Strength Hip Manual Muscle Testing Right Flexion (L2) 3 Fair Extension (S1) 3 Fair Abduction 5 Normal Adduction 3 Fair External Rotation 5 Normal Internal Rotation 5 Normal Left Flexion (L2) 3 Fair Extension (S1) 3 Fair Abduction 5 Normal Adduction 4+ Good+ External Rotation 4 Good Internal Rotation 5 Normal PT-OP-Q Treatments Start: 10/30/22 12:35 Freq: Status: Active Protocol: Document 01/29/23 12:33 LRN (Rec: 01/29/23 13:19 LRN [id number]) Therapeutic Exercises Supine Exercises PF Long Holds Supine Exercise Name On Wedge: PF Long Holds in isolation of subtitute Comments Xtra time for training of exercise. PF Quick Flicks Supine Exercise Name On Wedge: Quick Flicks in isolation of subtitute ms Reps/Minutes 20x Comments Xtra time for electrode placement/training. Hip AD/Kegel Supine Exercise Name Wedge/Hip AD/Kegel Reps/Minutes 10x hip AB with and without Kegel Hip AB/Kegel Supine Exercise Name Wedge/Hip AB/Kegel Equipment Used Pants for resistance Reps/Minutes 10x hip AB with and without Kegel Kegel on Wedge Supine Exercise Name Kegels on Wedge w/o substitute ms Reps/Minutes 4' Comments Minimal cuing needed for breath and isolation of Kegel Sitting Exercises Sit to Stand Sitting Exercise Name Sit to stand with coordination of PF contraction and breathing Reps/Minutes 6' Standing Exercises PF contractions Standing Exercise Name PF contractions with phys feedback from PT Comments At rest Uterus appears to be dropped L SB stretch Standing Exercise Name L SB stretch, exhale on lower Reps/Minutes Hold through 3 breaths Comments Extra time needed for determining max tolerated stretch and hold. Self-Care/Home Management Treatment Education Other Education Educated and discussed proper posture in sitting and standing, and proper sitting in various chairs and positioning on a chair. Activities Self-Care/Home Management Activities Issued handouts for proper sitting & standing posture. PT-OP-T Assessment and Plan Start: 10/30/22 12:35 Freq: Status: Active Protocol: Document 01/29/23 12:33 LRN (Rec: 01/29/23 13:19 LRN [id number]) Physical Therapy Assessment Goals Four Impairment Increased frequency of urination every 2 hours or less Short Term Goal (STG) Decrease pelvic pain at nighttime when having an urge to go to the bathroom, and eliminate the need for a pad at nighttime. 12/25/22: Deep breathing has helped to decrease the abdominal pain with nighttime urges. Pt not having to wear diaper pad at night. STG Duration 11/27/22 (12/25/22: MET GOAL) Ad Trafficker Goal (LTG) Pt will not have to get up every 2 hours in the night to use the bathroom. 01/01/23: Every 2 hrs in nighttime part of days this week. LTG Duration 01/28/23 (01/08/23: MET GOAL) Three Impairment Not able to perform a PF contraction in the absence of abdominal/glut ms Short Term Goal (STG) Improve awareness of the sensation of a proper PF contraction. 11/06/22: Pt educated in Kegel in isolation of substitute muscles. 12/25/22: Pt reporting she can feel a PF contraction. STG Duration 11/27/22 12/25/22: MET GOAL Detention Goal (LTG) Pt will be able to isolate a PF contraction without overuse of the outer abdominal, gluteal, and hip AD muscles. 12/25/22: Minimal contraction felt at outer abdominal, gluteal, and hip AD muscles with PF contraction. LTG Duration 01/28/23 12/25/22: MET GOAL Two Impairment PF weakness with urinary leakage with a strong urge. Short Term Goal (STG) Pt will be educated in urinary delay technique, and be able to move and get up/down comfortably without having the feeling of heaviness and having to go urgently. 11/06/22: Pt educated in movement/transfers with coordination of breathing and PF contractions. 12/25/22: Educated pt in urinary delay technique with handout issued. STG Duration 03/12/23 progressed 12/25/22 Detention Goal (LTG) Strengthen the PF for pt to be able to control her urine and not have to wear adult diapers, or at the most a regular urinary incontinent pad during the day. LTG Duration 03/29/23 One Impairment Pt lacks appropriate self care HEP. Short Term Goal (STG) Education in proper methods for transfer with coordination of breathing, and proper vulvar/genital care. 11/06/22: Pt education in proper methods for transfers with coordination of breathing /PF contraction. STG Duration 11/06/22 (01/01/23: MET GOAL) Ad Trafficker Goal (LTG) Pt will be independent with a self care HEP of PF/core strengthening and hip ROM exercises. 11/06/22: Kegel in isolation of substitute muscles and again with pillow under hips. 01/01/23: HEP: Fig 4 stretch with sequence of breath, & hip , ankle mvmt LTG Duration 04/28/23 progressed 01/01/23. Assessment Summary Assessment Pt moves slowly through ex due to c/o PF pain today. She appears to have drop of her uterus that doesn't extend past the hymen opening in standing and supine; therefore rated 2/5. Her pelvic organs moves to good position in supine on wedge and today her rectum was not bulging into her vaginal canal. PF strength is improving with better control of urinary leakage, but pt needs consult for options of care for her cystcele, rectocele and uterocele. Physical Therapy Plan Frequency and Duration Frequency of Treatment 1x/Week Plan of Care Start Date 01/28/23 Plan of Care End Date 04/28/23 Next Visit Focus/Plan Next Note Type Progress Note Next Visit Plan Assess response to trunk L SB. EX: trunk L SB stretch, PF strengthening for lateral laird and anterior PF. EMG biofeedback strengthening for Quick flicks and Long holds on Wedge. Education: Proper posture. 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 Strengthening Hip flex, ext, AD, ER. STM: (abdomen mid and lower). Discuss pt to return to MD for consult of cystcele, rectocele, uterocele.
--- NOTE | 2023-01-29 16:52 | PT.OPPN ---
Current Diagnoses Unspecified urinary incontinence (01/29/23) Physical Therapy Progress Note PT-OP-A Visit Information Start: 10/30/22 12:35 Freq: Status: Active Protocol: Document 01/29/23 12:33 LRN (Rec: 01/29/23 13:19 LRN [id number]) Out-Patient Physical Therapy Visit Information Visit Information Visit Type Progress Note Visit Start Time 12:33 Visit Stop Time 13:15 Total Visit Minutes 42 Visit Number 7 Evaluation Information Evaluation Date 10/30/22 Precautions Precautions Pt reports osteopenia in LB and R hip and osteroporosis of the L hip. Hyste and sling for prolapse 2010, Lung CA stage I surgery that was successful 2018 PT-OP-B Current Condition Start: 10/30/22 12:35 Freq: Status: Active Protocol: Document 10/30/22 13:53 LRN (Rec: 10/30/22 16:27 LRN [id number]) Current Condition History of Current Condition Onset Date 3-4 yrs ago Current Complaints Having to wear 2 adult diapers during the day. History of Current Condition Was having difficulty getting to work in [place] without leaking; therefore started wearing diapers. 1 yr ago started wearing 2 diapers. Was taking care of grandson and had to use one on top of the other, but usually after getting home would toss the top one and use the bottom one for the rest of the day. Most days can get by with using just one . During the night usually can hold urine to get to the toilet. I was noted: pt needed to use BR at start and 1x during evaluation. Pt is R handed Prior Treatments and Tests Surgeries: Hyste & sling for bladder prolapse (unsure if has mesh placed or not) 2010, done in [place], [place] . Precautions given: Not to lift > 25# and not do sit ups. Future Testing and Treatments Planned Oncologist 09/2023 Seeing referring physician/ tearer in December 2022. Treatment Goals Patient/Caregiver Goals Pt goals: 1. Be able to control her urine and not have to wear adult diapers. 2. Be able to move and get up /down comfortably without having the feeling of heaviness and having to go urgently. 3. Not have pain at nighttime when having an urge to go to the bathroom. 4. Not have to get up every 2 hours in the night to use the bathroom. Personal Factors Other Personal Factors That May Effect Lung CA surgery with good Therapy/Recovery results 2018. Laser was use to remove a small portion of the R lung. Osteroporosis of the L hip and osteopenia of spine and R hip. Surgical sling for prolapse place 2010. PT-OP-C Subjective Start: 10/30/22 12:35 Freq: Status: Active Protocol: Document 01/29/23 12:33 LRN (Rec: 01/29/23 13:19 LRN [id number]) OP-PT Subjective Patient Comments Patient Comments Thinks she is getting better, sometimes can hold her urine when standing. Last 6 months to year has pain in PF with sitting. PT-OP-I Pelvic Floor Start: 10/30/22 12:35 Freq: Status: Active Protocol: Document 01/15/23 13:47 LRN (Rec: 01/15/23 14:28 LRN [id number]) Pelvic Floor Assessment SEMG (uV) Baseline 0.5 Quick Contraction 2.4 10 Second Contraction 2.9 Recruitment Pattern Good Relaxation Good Holding Poor/Slow Stability of Hold Poor/Slow SEMG Stability of Rest Good Comments Pelvic Floor Comments Quick Flicks: 10x: Avg work is 2.4 uV's, Avg rest is 1.9 uV's 20 reps: Avg work is 2.8 uV's, Avg rest is 2.0 uV's Long Holds: 10x: Avg work is 2.9 uV's, avg rest is 0.7 uV's. 20x: Avg work is 2.9 uV's, avg rest is 0.6 uV's. PT-OP-J Posture/Palpation/Skin Start: 10/30/22 12:35 Freq: Status: Active Protocol: Document 10/30/22 13:53 LRN (Rec: 10/30/22 16:27 LRN [id number]) Posture Evaluation Position Standing Head/C-Spine Posture Forward Head T-Spine Posture Increased Kyphosis L-Spine Posture Decreased Lordosis Shoulder Posture (L) Elevated Hip Posture (L) Externally Rotated Comments Posture Comments Holds L arm in AB. R breast is low. C-curve of spine with apex on the left. PT-OP-K Range of Motion Start: 10/30/22 12:35 Freq: Status: Active Protocol: Document 10/30/22 13:53 LRN (Rec: 10/30/22 16:27 LRN [id number]) Lumbar Spine Range of Motion Lumbar Spine Active Degrees Testing Position Standing Flexion 55 Extension 5 Rotation Left 20 Rotation Right 20 Lateral Flexion Left 10 Lateral Flexion Right 10 Hip Goniometric Range of Motion Hip Measured in Degrees Right Passive Testing Position Supine Internal Rotation 45 External Rotation 50 Comments Measurements are approximations. Left Passive Testing Position Supine Internal Rotation 30 External Rotation 75 Comments Measurements are approximations. PT-OP-M Strength Start: 10/30/22 12:35 Freq: Status: Active Protocol: Document 10/30/22 13:53 LRN (Rec: 10/30/22 16:27 LRN [id number]) Trunk Strength Trunk Manual Muscle Testing Core Stabilization Not able to maintain core stability with MMT of LE's. Hip Strength Hip Manual Muscle Testing Right Flexion (L2) 3 Fair Extension (S1) 3 Fair Abduction 5 Normal Adduction 3 Fair External Rotation 5 Normal Internal Rotation 5 Normal Left Flexion (L2) 3 Fair Extension (S1) 3 Fair Abduction 5 Normal Adduction 4+ Good+ External Rotation 4 Good Internal Rotation 5 Normal PT-OP-T Assessment and Plan Start: 10/30/22 12:35 Freq: Status: Active Protocol: Document 01/29/23 12:33 LRN (Rec: 01/29/23 13:19 LRN [id number]) Physical Therapy Assessment Goals Four Impairment Increased frequency of urination every 2 hours or less Short Term Goal (STG) Decrease pelvic pain at nighttime when having an urge to go to the bathroom, and eliminate the need for a pad at nighttime. 12/25/22: Deep breathing has helped to decrease the abdominal pain with nighttime urges. Pt not having to wear diaper pad at night. STG Duration 11/27/22 (12/25/22: MET GOAL) Chip Person Goal (LTG) Pt will not have to get up every 2 hours in the night to use the bathroom. 01/01/23: Every 2 hrs in nighttime part of days this week. LTG Duration 01/28/23 (01/08/23: MET GOAL) Three Impairment Not able to perform a PF contraction in the absence of abdominal/glut ms Short Term Goal (STG) Improve awareness of the sensation of a proper PF contraction. 11/06/22: Pt educated in Kegel in isolation of substitute muscles. 12/25/22: Pt reporting she can feel a PF contraction. STG Duration 11/27/22 12/25/22: MET GOAL Half-Way Goal (LTG) Pt will be able to isolate a PF contraction without overuse of the outer abdominal, gluteal, and hip AD muscles. 12/25/22: Minimal contraction felt at outer abdominal, gluteal, and hip AD muscles with PF contraction. LTG Duration 01/28/23 12/25/22: MET GOAL Two Impairment PF weakness with urinary leakage with a strong urge. Short Term Goal (STG) Pt will be educated in urinary delay technique, and be able to move and get up/down comfortably without having the feeling of heaviness and having to go urgently. 11/06/22: Pt educated in movement/transfers with coordination of breathing and PF contractions. 12/25/22: Educated pt in urinary delay technique with handout issued. STG Duration 03/12/23 progressed 12/25/22 Half-Way Goal (LTG) Strengthen the PF for pt to be able to control her urine and not have to wear adult diapers, or at the most a regular urinary incontinent pad during the day. LTG Duration 03/29/23 One Impairment Pt lacks appropriate self care HEP. Short Term Goal (STG) Education in proper methods for transfer with coordination of breathing, and proper vulvar/genital care. 11/06/22: Pt education in proper methods for transfers with coordination of breathing /PF contraction. STG Duration 11/06/22 (01/01/23: MET GOAL) Half-Way Goal (LTG) Pt will be independent with a self care HEP of PF/core strengthening and hip ROM exercises. 11/06/22: Kegel in isolation of substitute muscles and again with pillow under hips. 01/01/23: HEP: Fig 4 stretch with sequence of breath, & hip , ankle mvmt LTG Duration 04/28/23 progressed 01/01/23. Assessment Summary Assessment Pt moves slowly through ex due to c/o PF pain today. She appears to have drop of her uterus that doesn't extend past the hymen opening in standing and supine; therefore rated 2/5. Her pelvic organs moves to good position in supine on wedge and today her rectum was not bulging into her vaginal canal. PF strength is improving with better control of urinary leakage, but pt needs consult for options of care for her cystcele, rectocele and uterocele. Physical Therapy Plan Frequency and Duration Frequency of Treatment 1x/Week Plan of Care Start Date 01/28/23 Plan of Care End Date 04/28/23 Next Visit Focus/Plan Next Note Type Progress Note Next Visit Plan Assess response to trunk L SB. EX: trunk L SB stretch, PF strengthening for lateral laird and anterior PF. EMG biofeedback strengthening for Quick flicks and Long holds on Wedge. Education: Proper posture. 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 Strengthening Hip flex, ext, AD, ER. STM: (abdomen mid and lower). Discuss pt to return to MD for consult of cystcele, rectocele, uterocele.
--- NOTE | 2023-01-29 16:53 | PT.OPPOC ---
Physical, Occupational & Speech Therapy At [facility] Current Diagnoses Unspecified urinary incontinence (01/29/23) Visit Care Team Role Provider Type SUHAS Lopes Attending Provider Physician Family Provider Primary Care Provider Referring Provider Specialty: Nursing Address: [address] [place] [address], [id number] Email: Plan Of Care PT-OP-T Assessment and Plan Start: 10/30/22 12:35 Freq: Status: Active Protocol: Document 01/29/23 12:33 LRN (Rec: 01/29/23 13:19 LRN [id number]) Physical Therapy Assessment Goals Four Impairment Increased frequency of urination every 2 hours or less Short Term Goal (STG) Decrease pelvic pain at nighttime when having an urge to go to the bathroom, and eliminate the need for a pad at nighttime. 12/25/22: Deep breathing has helped to decrease the abdominal pain with nighttime urges. Pt not having to wear diaper pad at night. STG Duration 11/27/22 (12/25/22: MET GOAL) Boat Joiner Goal (LTG) Pt will not have to get up every 2 hours in the night to use the bathroom. 01/01/23: Every 2 hrs in nighttime part of days this week. LTG Duration 01/28/23 (01/08/23: MET GOAL) Three Impairment Not able to perform a PF contraction in the absence of abdominal/glut ms Short Term Goal (STG) Improve awareness of the sensation of a proper PF contraction. 11/06/22: Pt educated in Kegel in isolation of substitute muscles. 12/25/22: Pt reporting she can feel a PF contraction. STG Duration 11/27/22 12/25/22: MET GOAL Boat Joiner Goal (LTG) Pt will be able to isolate a PF contraction without overuse of the outer abdominal, gluteal, and hip AD muscles. 12/25/22: Minimal contraction felt at outer abdominal, gluteal, and hip AD muscles with PF contraction. LTG Duration 01/28/23 12/25/22: MET GOAL Two Impairment PF weakness with urinary leakage with a strong urge. Short Term Goal (STG) Pt will be educated in urinary delay technique, and be able to move and get up/down comfortably without having the feeling of heaviness and having to go urgently. 11/06/22: Pt educated in movement/transfers with coordination of breathing and PF contractions. 12/25/22: Educated pt in urinary delay technique with handout issued. STG Duration 03/12/23 progressed 12/25/22 Boat Joiner Goal (LTG) Strengthen the PF for pt to be able to control her urine and not have to wear adult diapers, or at the most a regular urinary incontinent pad during the day. LTG Duration 03/29/23 One Impairment Pt lacks appropriate self care HEP. Short Term Goal (STG) Education in proper methods for transfer with coordination of breathing, and proper vulvar/genital care. 11/06/22: Pt education in proper methods for transfers with coordination of breathing /PF contraction. STG Duration 11/06/22 (01/01/23: MET GOAL) Boat Joiner Goal (LTG) Pt will be independent with a self care HEP of PF/core strengthening and hip ROM exercises. 11/06/22: Kegel in isolation of substitute muscles and again with pillow under hips. 01/01/23: HEP: Fig 4 stretch with sequence of breath, & hip , ankle mvmt LTG Duration 04/28/23 progressed 01/01/23. Assessment Summary Assessment Pt moves slowly through ex due to c/o PF pain today. She appears to have drop of her uterus that doesn't extend past the hymen opening in standing and supine; therefore rated 2/5. Her pelvic organs moves to good position in supine on wedge and today her rectum was not bulging into her vaginal canal. PF strength is improving with better control of urinary leakage, but pt needs consult for options of care for her cystcele, rectocele and uterocele. Physical Therapy Plan Frequency and Duration Frequency of Treatment 1x/Week Plan of Care Start Date 01/28/23 Plan of Care End Date 04/28/23 Next Visit Focus/Plan Next Note Type Progress Note Next Visit Plan Assess response to trunk L SB. EX: trunk L SB stretch, PF strengthening for lateral laird and anterior PF. EMG biofeedback strengthening for Quick flicks and Long holds on Wedge. Education: Proper posture. 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 Strengthening Hip flex, ext, AD, ER. STM: (abdomen mid and lower). Discuss pt to return to MD for consult of cystcele, rectocele, uterocele. Plan of Care Dates Plan of Care Start Date 01/28/23 Plan of Care End Date 04/28/23 Electronically Signed by: Carol Limon, PT 01/29/23 [id number] If you are in agreement with this Plan of Care, please return a signed and dated copy. I have reviewed this Plan of Care and certify that the skilled therapy services above are required to meet the patient?s needs. Physician Signature Date Printed Name and Credentials Clinical Instructor Signature Printed Name and Credentials
--- NOTE | 2023-02-12 11:17 | PT.OTN ---
Current Diagnoses Unspecified urinary incontinence (02/12/23) Physical Therapy Treatment Note PT-OP-A Visit Information Start: 10/30/22 12:35 Freq: Status: Active Protocol: Document 02/12/23 10:29 LRN (Rec: 02/12/23 11:16 LRN [id number]) Out-Patient Physical Therapy Visit Information Visit Information Visit Type Treatment Note Visit Start Time 10:29 Visit Stop Time 11:13 Total Visit Minutes 46 Visit Number 8 Evaluation Information Evaluation Date 10/30/22 Precautions Precautions Pt reports osteopenia in LB and R hip and osteroporosis of the L hip. Hyste and sling for prolapse 2010, Lung CA stage I surgery that was successful 2018 PT-OP-B Current Condition Start: 10/30/22 12:35 Freq: Status: Active Protocol: Document 10/30/22 13:53 LRN (Rec: 10/30/22 16:27 LRN [id number]) Current Condition History of Current Condition Onset Date 3-4 yrs ago Current Complaints Having to wear 2 adult diapers during the day. History of Current Condition Was having difficulty getting to work in [place] without leaking; therefore started wearing diapers. 1 yr ago started wearing 2 diapers. Was taking care of grandson and had to use one on top of the other, but usually after getting home would toss the top one and use the bottom one for the rest of the day. Most days can get by with using just one . During the night usually can hold urine to get to the toilet. I was noted: pt needed to use BR at start and 1x during evaluation. Pt is R handed Prior Treatments and Tests Surgeries: Hyste & sling for bladder prolapse (unsure if has mesh placed or not) 2010, done in [place], [place] . Precautions given: Not to lift > 25# and not do sit ups. 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 Treatment Goals Patient/Caregiver Goals Pt goals: 1. Be able to control her urine and not have to wear adult diapers. 2. Be able to move and get up /down comfortably without having the feeling of heaviness and having to go urgently. 3. Not have pain at nighttime when having an urge to go to the bathroom. 4. Not have to get up every 2 hours in the night to use the bathroom. Personal Factors Other Personal Factors That May Effect Lung CA surgery with good Therapy/Recovery results 2018. Laser was use to remove a small portion of the R lung. Osteroporosis of the L hip and osteopenia of spine and R hip. Surgical sling for prolapse place 2010. PT-OP-C Subjective Start: 10/30/22 12:35 Freq: Status: Active Protocol: Document 02/12/23 10:29 LRN (Rec: 02/12/23 11:16 LRN [id number]) OP-PT Subjective Patient Comments Patient Comments Getting better at judging intake before bed and judging eating. Thinks she is getting better holding her urine and can make if farther when getting to bathroom. Main problem is getting out of car causing leakage. PT-OP-I Pelvic Floor Start: 10/30/22 12:35 Freq: Status: Active Protocol: Document 01/15/23 13:47 LRN (Rec: 01/15/23 14:28 LRN [id number]) Pelvic Floor Assessment SEMG (uV) Baseline 0.5 Quick Contraction 2.4 10 Second Contraction 2.9 Recruitment Pattern Good Relaxation Good Holding Poor/Slow Stability of Hold Poor/Slow SEMG Stability of Rest Good Comments Pelvic Floor Comments Quick Flicks: 10x: Avg work is 2.4 uV's, Avg rest is 1.9 uV's 20 reps: Avg work is 2.8 uV's, Avg rest is 2.0 uV's Long Holds: 10x: Avg work is 2.9 uV's, avg rest is 0.7 uV's. 20x: Avg work is 2.9 uV's, avg rest is 0.6 uV's. PT-OP-J Posture/Palpation/Skin Start: 10/30/22 12:35 Freq: Status: Active Protocol: Document 10/30/22 13:53 LRN (Rec: 10/30/22 16:27 LRN [id number]) Posture Evaluation Position Standing Head/C-Spine Posture Forward Head T-Spine Posture Increased Kyphosis L-Spine Posture Decreased Lordosis Shoulder Posture (L) Elevated Hip Posture (L) Externally Rotated Comments Posture Comments Holds L arm in AB. R breast is low. C-curve of spine with apex on the left. PT-OP-K Range of Motion Start: 10/30/22 12:35 Freq: Status: Active Protocol: Document 10/30/22 13:53 LRN (Rec: 10/30/22 16:27 LRN [id number]) Lumbar Spine Range of Motion Lumbar Spine Active Degrees Testing Position Standing Flexion 55 Extension 5 Rotation Left 20 Rotation Right 20 Lateral Flexion Left 10 Lateral Flexion Right 10 Hip Goniometric Range of Motion Hip Right Passive Testing Position Supine Internal Rotation 45 External Rotation 50 Comments Measurements are approximations. Left Passive Testing Position Supine Internal Rotation 30 External Rotation 75 Comments Measurements are approximations. PT-OP-M Strength Start: 10/30/22 12:35 Freq: Status: Active Protocol: Document 10/30/22 13:53 LRN (Rec: 10/30/22 16:27 LRN [id number]) Trunk Strength Trunk Manual Muscle Testing Core Stabilization Not able to maintain core stability with MMT of LE's. Hip Strength Hip Manual Muscle Testing Right Flexion (L2) 3 Fair Extension (S1) 3 Fair Abduction 5 Normal Adduction 3 Fair External Rotation 5 Normal Internal Rotation 5 Normal Left Flexion (L2) 3 Fair Extension (S1) 3 Fair Abduction 5 Normal Adduction 4+ Good+ External Rotation 4 Good Internal Rotation 5 Normal PT-OP-Q Treatments Start: 10/30/22 12:35 Freq: Status: Active Protocol: Document 02/12/23 10:29 LRN (Rec: 02/12/23 11:16 LRN [id number]) Therapeutic Exercises Supine Exercises Kegel/Bridge/Ball squeeze Supine Exercise Name Kegel/Bridge/Ball squeeze Reps/Minutes 10x Comments Extra time taken for coordination and training of ex PF Long Holds Supine Exercise Name On pillow: PF contract w/ball squeeze, in isolation of subtitute ms Reps/Minutes 8 SH x 3' PF Quick Flicks Supine Exercise Name On pillow: PF contract w/ball squeeze, in isolation of subtitute ms Reps/Minutes 10x 3 Hip AD/Kegel Supine Exercise Name Wedge/Hip AD/Kegel Equipment Used ball Reps/Minutes 10x 3 Ball squeeze Therapeutic Activity Therapeutic Activity Posture training Name Posture training sitting in car w/PF tightening Reps/Minutes 6' + 4' walking to car Comments Extra time to walk to car and back Car transfer Name Car transfer with PF contraction Reps/Minutes 18' PT-OP-T Assessment and Plan Start: 10/30/22 12:35 Freq: Status: Active Protocol: Document 02/12/23 10:29 LRN (Rec: 02/12/23 11:16 LRN [id number]) Physical Therapy Assessment Goals Four Impairment Increased frequency of urination every 2 hours or less Short Term Goal (STG) Decrease pelvic pain at nighttime when having an urge to go to the bathroom, and eliminate the need for a pad at nighttime. 12/25/22: Deep breathing has helped to decrease the abdominal pain with nighttime urges. Pt not having to wear diaper pad at night. 02/12/23: Painful urge to urinate first in morning, not during the night. NO adult diaper needed at nighttime. STG Duration 11/27/22 (12/25/22: MET GOAL) Retirement Goal (LTG) Pt will not have to get up every 2 hours in the night to use the bathroom. 01/01/23: Every 2 hrs in nighttime part of days this week. 02/12/23: Urinates every 2.5-3 hrs. LTG Duration 01/28/23 (01/08/23: MET GOAL) Three Impairment Not able to perform a PF contraction in the absence of abdominal/glut ms Short Term Goal (STG) Improve awareness of the sensation of a proper PF contraction. 11/06/22: Pt educated in Kegel in isolation of substitute muscles. 12/25/22: Pt reporting she can feel a PF contraction. STG Duration 11/27/22 12/25/22: MET GOAL Retirement Goal (LTG) Pt will be able to isolate a PF contraction without overuse of the outer abdominal, gluteal, and hip AD muscles. 12/25/22: Minimal contraction felt at outer abdominal, gluteal, and hip AD muscles with PF contraction. LTG Duration 01/28/23 12/25/22: MET GOAL Two Impairment PF weakness with urinary leakage with a strong urge. Short Term Goal (STG) Pt will be educated in urinary delay technique, and be able to move and get up/down comfortably without having the feeling of heaviness and having to go urgently. 11/06/22: Pt educated in movement/transfers with coordination of breathing and PF contractions. 02/12/23: During car transfer training the pt didn't have a feeling of having to urinate on standing. 12/25/22: Educated pt in urinary delay technique with handout issued. STG Duration 03/12/23 progressed 02/12/23 Retirement Goal (LTG) Strengthen the PF for pt to be able to control her urine and not have to wear adult diapers, or at the most a regular urinary incontinent pad during the day. 02/12/23: Wearing adult diapers during day when going outside the home - unchanged. LTG Duration 03/29/23 02/12/23: Same. One Impairment Pt lacks appropriate self care HEP. Short Term Goal (STG) Education in proper methods for transfer with coordination of breathing, and proper vulvar/genital care. 11/06/22: Pt education in proper methods for transfers with coordination of breathing /PF contraction. STG Duration 11/06/22 (01/01/23: MET GOAL) Plater Apprentice Goal (LTG) Pt will be independent with a self care HEP of PF/core strengthening and hip ROM exercises. 11/06/22: Kegel in isolation of substitute muscles and again with pillow under hips. 01/01/23: HEP: Fig 4 stretch with sequence of breath, & hip , ankle mvmt LTG Duration 04/28/23 progressed 01/01/23. Progress Towards Goals Progress Comments Less urge to urinate with getting in/out of car during PF/car transfer trianing. Assessment Summary Assessment Pt much improved in posture sitting in car after training/ education in modifications to sitting. Much improved awareness of PF contraction during transfer in/out of car and adjusting for posture. Good tolerance to bridge with Hip AB/AD (Tband/Ball squeeze) without complaint of LBP. Physical Therapy Plan Frequency and Duration Frequency of Treatment 1x/Week Plan of Care Start Date 01/28/23 Plan of Care End Date 04/28/23 Next Visit Focus/Plan Next Note Type Progress Note Next Visit Plan EMG biofeedback strengthening for Quick flicks and Long holds on Wedge. Assess response to car posture /transfer training on urinary leakage reduction/delay. Asesss trunk L SB. EX: trunk L SB stretch, PF strengthening for lateral laird and anterior PF. Education: Proper posture. 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 Strengthening Hip flex, ext, AD, ER. STM: (abdomen mid and lower). Discuss pt to return to MD for consult of jeff rectocele, uterocele.
--- NOTE | 2023-02-26 13:36 | PT.OTN ---
Current Diagnoses Unspecified urinary incontinence (02/26/23) Physical Therapy Treatment Note PT-OP-A Visit Information Start: 10/30/22 12:35 Freq: Status: Active Protocol: Document 02/26/23 12:34 LRN (Rec: 02/26/23 13:18 LRN [id number]) Out-Patient Physical Therapy Visit Information Visit Information Visit Type Treatment Note Visit Note 2 after PN Visit Start Time 12:34 Visit Stop Time 13:14 Total Visit Minutes 40 Visit Number 9 Evaluation Information Evaluation Date 10/30/22 Precautions Precautions Pt reports osteopenia in LB and R hip and osteroporosis of the L hip. Hyste and sling for prolapse 2010, Lung CA stage I surgery that was successful 2018 PT-OP-B Current Condition Start: 10/30/22 12:35 Freq: Status: Active Protocol: Document 10/30/22 13:53 LRN (Rec: 10/30/22 16:27 LRN [id number]) Current Condition History of Current Condition Onset Date 3-4 yrs ago Current Complaints Having to wear 2 adult diapers during the day. History of Current Condition Was having difficulty getting to work in [place] without leaking; therefore started wearing diapers. 1 yr ago started wearing 2 diapers. Was taking care of grandson and had to use one on top of the other, but usually after getting home would toss the top one and use the bottom one for the rest of the day. Most days can get by with using just one . During the night usually can hold urine to get to the toilet. I was noted: pt needed to use BR at start and 1x during evaluation. Pt is R handed Prior Treatments and Tests Surgeries: Hyste & sling for bladder prolapse (unsure if has mesh placed or not) 2010, done in [place], [place] . Precautions given: Not to lift > 25# and not do sit ups. Future Testing and Treatments Planned Oncologist 09/2023 Seeing referring physician/ a/c tech in December 2022. Treatment Goals Patient/Caregiver Goals Pt goals: 1. Be able to control her urine and not have to wear adult diapers. 2. Be able to move and get up /down comfortably without having the feeling of heaviness and having to go urgently. 3. Not have pain at nighttime when having an urge to go to the bathroom. 4. Not have to get up every 2 hours in the night to use the bathroom. Personal Factors Other Personal Factors That May Effect Lung CA surgery with good Therapy/Recovery results 2018. Laser was use to remove a small portion of the R lung. Osteroporosis of the L hip and osteopenia of spine and R hip. Surgical sling for prolapse place 2010. PT-OP-C Subjective Start: 10/30/22 12:35 Freq: Status: Active Protocol: Document 02/26/23 12:34 LRN (Rec: 02/26/23 13:18 LRN [id number]) OP-PT Subjective Patient Comments Patient Comments States she went on an airplane ride and was incontinent getting up. PT-OP-I Pelvic Floor Start: 10/30/22 12:35 Freq: Status: Active Protocol: Document 01/15/23 13:47 LRN (Rec: 01/15/23 14:28 LRN [id number]) Pelvic Floor Assessment SEMG (uV) Baseline 0.5 Quick Contraction 2.4 10 Second Contraction 2.9 Recruitment Pattern Good Relaxation Good Holding Poor/Slow Stability of Hold Poor/Slow SEMG Stability of Rest Good Comments Pelvic Floor Comments Quick Flicks: 10x: Avg work is 2.4 uV's, Avg rest is 1.9 uV's 20 reps: Avg work is 2.8 uV's, Avg rest is 2.0 uV's Long Holds: 10x: Avg work is 2.9 uV's, avg rest is 0.7 uV's. 20x: Avg work is 2.9 uV's, avg rest is 0.6 uV's. PT-OP-J Posture/Palpation/Skin Start: 10/30/22 12:35 Freq: Status: Active Protocol: Document 10/30/22 13:53 LRN (Rec: 10/30/22 16:27 LRN [id number]) Posture Evaluation Position Standing Head/C-Spine Posture Forward Head T-Spine Posture Increased Kyphosis L-Spine Posture Decreased Lordosis Shoulder Posture (L) Elevated Hip Posture (L) Externally Rotated Comments Posture Comments Holds L arm in AB. R breast is low. C-curve of spine with apex on the left. PT-OP-K Range of Motion Start: 10/30/22 12:35 Freq: Status: Active Protocol: Document 10/30/22 13:53 LRN (Rec: 10/30/22 16:27 LRN [id number]) Lumbar Spine Range of Motion Lumbar Spine Active Degrees Testing Position Standing Flexion 55 Extension 5 Rotation Left 20 Rotation Right 20 Lateral Flexion Left 10 Lateral Flexion Right 10 Hip Goniometric Range of Motion Hip Right Passive Testing Position Supine Internal Rotation 45 External Rotation 50 Comments Measurements are approximations. Left Passive Testing Position Supine Internal Rotation 30 External Rotation 75 Comments Measurements are approximations. PT-OP-M Strength Start: 10/30/22 12:35 Freq: Status: Active Protocol: Document 10/30/22 13:53 LRN (Rec: 10/30/22 16:27 LRN [id number]) Trunk Strength Trunk Manual Muscle Testing Core Stabilization Not able to maintain core stability with MMT of LE's. Hip Strength Hip Manual Muscle Testing Right Flexion (L2) 3 Fair Extension (S1) 3 Fair Abduction 5 Normal Adduction 3 Fair External Rotation 5 Normal Internal Rotation 5 Normal Left Flexion (L2) 3 Fair Extension (S1) 3 Fair Abduction 5 Normal Adduction 4+ Good+ External Rotation 4 Good Internal Rotation 5 Normal PT-OP-Q Treatments Start: 10/30/22 12:35 Freq: Status: Active Protocol: Document 02/26/23 12:34 LRN (Rec: 02/26/23 13:18 LRN [id number]) Therapeutic Exercises Supine Exercises Kegel/Bridge/Ball squeeze Supine Exercise Name Kegel/Bridge/Ball squeeze on wedge Equipment Used Red ball and Lev 1 TBand. Reps/Minutes 20x Comments Extra time taken for coordination and training of ex Hip AD/Kegel Supine Exercise Name Wedge/Hip AD/Kegel Equipment Used Red & small yellow ball Reps/Minutes 10x 3 Ball squeeze Hip AB/Kegel Supine Exercise Name Wedge/Hip AB/Kegel Equipment Used Lev 1 TBand Reps/Minutes 10x hip AB with and without Kegel Kegel on Wedge Supine Exercise Name Kegels on Wedge w/o substitute ms Reps/Minutes 6' Comments Minimal cuing needed for breath and isolation of Kegel Sidelying Exercises PF/Clamshell Sidelying Exercise Name PF/Clamshell/Breathing coordination Side bilateral Reps/Minutes 5x w/PF, 5x w/o PF - 6x. Comments Cuing to Squeeze ball and for exhale on lift of knee. Standing Exercises milling general superintendent object training Standing Exercise Name Postural and body mechanics for picking up object w/ back in lordosis Reps/Minutes 4' Comments Cuing to keep lumbar ext with squat Therapeutic Activity Therapeutic Activity Posture training Name Posture training standing for arch in back. Reps/Minutes 2' Comments Cuing for neutral spine and cuing to maintain a little lordosis in standing and with squatting. PT-OP-T Assessment and Plan Start: 10/30/22 12:35 Freq: Status: Active Protocol: Document 02/26/23 12:34 LRN (Rec: 02/26/23 13:18 LRN [id number]) Physical Therapy Assessment Goals Four Impairment Increased frequency of urination every 2 hours or less Short Term Goal (STG) Decrease pelvic pain at nighttime when having an urge to go to the bathroom, and eliminate the need for a pad at nighttime. 12/25/22: Deep breathing has helped to decrease the abdominal pain with nighttime urges. Pt not having to wear diaper pad at night. 02/12/23: Painful urge to urinate first in morning, not during the night. NO adult diaper needed at nighttime. STG Duration 11/27/22 (12/25/22: MET GOAL) Transfer Station Attendant Goal (LTG) Pt will not have to get up every 2 hours in the night to use the bathroom. 01/01/23: Every 2 hrs in nighttime part of days this week. 02/12/23: Urinates every 2.5-3 hrs. 02/26/23: Urinated at nighttime 2-3x/night (5hr and 3 hrs between voids). LTG Duration 01/28/23 (01/08/23: MET GOAL) Three Impairment Not able to perform a PF contraction in the absence of abdominal/glut ms Short Term Goal (STG) Improve awareness of the sensation of a proper PF contraction. 11/06/22: Pt educated in Jero in isolation of substitute muscles. 12/25/22: Pt reporting she can feel a PF contraction. STG Duration 11/27/22 12/25/22: MET GOAL Transfer Station Attendant Goal (LTG) Pt will be able to isolate a PF contraction without overuse of the outer abdominal, gluteal, and hip AD muscles. 12/25/22: Minimal contraction felt at outer abdominal, gluteal, and hip AD muscles with PF contraction. LTG Duration 01/28/23 12/25/22: MET GOAL Two Impairment PF weakness with urinary leakage with a strong urge. Short Term Goal (STG) Pt will be educated in urinary delay technique, and be able to move and get up/down comfortably without having the feeling of heaviness and having to go urgently. 11/06/22: Pt educated in movement/transfers with coordination of breathing and PF contractions. 02/12/23: During car transfer training the pt didn't have a feeling of having to urinate on standing. 12/25/22: Educated pt in urinary delay technique with handout issued. STG Duration 03/12/23 progressed 02/12/23 Transfer Station Attendant Goal (LTG) Strengthen the PF for pt to be able to control her urine and not have to wear adult diapers, or at the most a regular urinary incontinent pad during the day. 02/12/23: Wearing adult diapers during day when going outside the home - unchanged. LTG Duration 03/29/23 02/12/23: Same. One Impairment Pt lacks appropriate self care HEP. Short Term Goal (STG) Education in proper methods for transfer with coordination of breathing, and proper vulvar/genital care. 11/06/22: Pt education in proper methods for transfers with coordination of breathing /PF contraction. STG Duration 11/06/22 (01/01/23: MET GOAL) Transfer Station Attendant Goal (LTG) Pt will be independent with a self care HEP of PF/core strengthening and hip ROM exercises. 11/06/22: Kegel in isolation of substitute muscles and again with pillow under hips. 01/01/23: HEP: Fig 4 stretch with sequence of breath, & hip , ankle mvmt LTG Duration 04/28/23 progressed 01/01/23. Assessment Summary Assessment Pt with urge urinary incontinence, and cytocele grade 2. Pt moves slowly through exercises. Pt reports she hasn't been driving much but still has urinary leakage after car posture/transfer training about the same. After squat fruit or nut picker training, pt able to perform w/o vaginal pain. Physical Therapy Plan Frequency and Duration Frequency of Treatment 1x/Week Plan of Care Start Date 01/28/23 Plan of Care End Date 04/28/23 Next Visit Focus/Plan Next Note Type Treatment Note Next Visit Plan Asesss compliance to trunk L SB stretch and review if needed. EMG biofeedback strengthening for Quick flicks and Long holds on Wedge. EX: Cont PF strengthening for lateral laird and anterior PF . Education: Gentle core strengthening due to CA history(rotation, TA). Strengthening Hip flex, ext, AD, ER. STM: (abdomen mid and lower). Discuss pt to return to MD for consult of cystcele, rectocele, uterocele.
--- NOTE | 2023-03-11 14:53 | PT.OTN ---
Current Diagnoses Unspecified urinary incontinence (03/11/23) Physical Therapy Treatment Note PT-OP-A Visit Information Start: 10/30/22 12:35 Freq: Status: Active Protocol: Document 03/11/23 12:34 LRN (Rec: 03/11/23 13:19 LRN [id number]) Out-Patient Physical Therapy Visit Information Visit Information Visit Type Treatment Note Visit Note 3 after PN Visit Start Time 12:34 Visit Stop Time 13:18 Total Visit Minutes 44 Visit Number 10 Evaluation Information Evaluation Date 10/30/22 Precautions Precautions Pt reports osteopenia in LB and R hip and osteroporosis of the L hip. Hyste and sling for prolapse 2010, Lung CA stage I surgery that was successful 2018 PT-OP-B Current Condition Start: 10/30/22 12:35 Freq: Status: Active Protocol: Document 10/30/22 13:53 LRN (Rec: 10/30/22 16:27 LRN [id number]) Current Condition History of Current Condition Onset Date 3-4 yrs ago Current Complaints Having to wear 2 adult diapers during the day. History of Current Condition Was having difficulty getting to work in [place] without leaking; therefore started wearing diapers. 1 yr ago started wearing 2 diapers. Was taking care of grandson and had to use one on top of the other, but usually after getting home would toss the top one and use the bottom one for the rest of the day. Most days can get by with using just one . During the night usually can hold urine to get to the toilet. I was noted: pt needed to use BR at start and 1x during evaluation. Pt is R handed Prior Treatments and Tests Surgeries: Hyste & sling for bladder prolapse (unsure if has mesh placed or not) 2010, done in [place], [place] . Precautions given: Not to lift > 25# and not do sit ups. Future Testing and Treatments Planned Oncologist 09/2023 Seeing referring physician/ gambling floor supervisor in December 2022. Treatment Goals Patient/Caregiver Goals Pt goals: 1. Be able to control her urine and not have to wear adult diapers. 2. Be able to move and get up /down comfortably without having the feeling of heaviness and having to go urgently. 3. Not have pain at nighttime when having an urge to go to the bathroom. 4. Not have to get up every 2 hours in the night to use the bathroom. Personal Factors Other Personal Factors That May Effect Lung CA surgery with good Therapy/Recovery results 2018. Laser was use to remove a small portion of the R lung. Osteroporosis of the L hip and osteopenia of spine and R hip. Surgical sling for prolapse place 2010. PT-OP-C Subjective Start: 10/30/22 12:35 Freq: Status: Active Protocol: Document 03/11/23 12:34 LRN (Rec: 03/11/23 13:19 LRN [id number]) OP-PT Subjective Patient Comments Patient Comments Having more good days than bad days. When having a bad day she thinks it is due to something she ate. States the back support in the car has helped decrease urinary leakage when getting up. Now closer to the bathroom at work situation, so less urinary leakage with urge. States the ex's has helped with her level of leakage. Pt doesn't wear adult diapers during the day at home, but wears when outside of home for precaution . Pt states she is ready to be placed onto her HEP. Patient Questionnaires Pelvic Pain and Urgency/Frequency Patient Symptom Scale Pelvic Pain Score 11, previous was 11. PT-OP-I Pelvic Floor Start: 10/30/22 12:35 Freq: Status: Active Protocol: Document 01/15/23 13:47 LRN (Rec: 01/15/23 14:28 LRN [id number]) Pelvic Floor Assessment SEMG (uV) Baseline 0.5 Quick Contraction 2.4 10 Second Contraction 2.9 Recruitment Pattern Good Relaxation Good Holding Poor/Slow Stability of Hold Poor/Slow SEMG Stability of Rest Good Comments Pelvic Floor Comments Quick Flicks: 10x: Avg work is 2.4 uV's, Avg rest is 1.9 uV's 20 reps: Avg work is 2.8 uV's, Avg rest is 2.0 uV's Long Holds: 10x: Avg work is 2.9 uV's, avg rest is 0.7 uV's. 20x: Avg work is 2.9 uV's, avg rest is 0.6 uV's. PT-OP-J Posture/Palpation/Skin Start: 10/30/22 12:35 Freq: Status: Active Protocol: Document 10/30/22 13:53 LRN (Rec: 10/30/22 16:27 LRN [id number]) Posture Evaluation Position Standing Head/C-Spine Posture Forward Head T-Spine Posture Increased Kyphosis L-Spine Posture Decreased Lordosis Shoulder Posture (L) Elevated Hip Posture (L) Externally Rotated Comments Posture Comments Holds L arm in AB. R breast is low. C-curve of spine with apex on the left. PT-OP-K Range of Motion Start: 10/30/22 12:35 Freq: Status: Active Protocol: Document 10/30/22 13:53 LRN (Rec: 10/30/22 16:27 LRN [id number]) Lumbar Spine Range of Motion Lumbar Spine Active Degrees Testing Position Standing Flexion 55 Extension 5 Rotation Left 20 Rotation Right 20 Lateral Flexion Left 10 Lateral Flexion Right 10 Hip Goniometric Range of Motion Hip Right Passive Testing Position Supine Internal Rotation 45 External Rotation 50 Comments Measurements are approximations. Left Passive Testing Position Supine Internal Rotation 30 External Rotation 75 Comments Measurements are approximations. PT-OP-M Strength Start: 10/30/22 12:35 Freq: Status: Active Protocol: Document 10/30/22 13:53 LRN (Rec: 10/30/22 16:27 LRN [id number]) Trunk Strength Trunk Manual Muscle Testing Core Stabilization Not able to maintain core stability with MMT of LE's. Hip Strength Hip Manual Muscle Testing Right Flexion (L2) 3 Fair Extension (S1) 3 Fair Abduction 5 Normal Adduction 3 Fair External Rotation 5 Normal Internal Rotation 5 Normal Left Flexion (L2) 3 Fair Extension (S1) 3 Fair Abduction 5 Normal Adduction 4+ Good+ External Rotation 4 Good Internal Rotation 5 Normal PT-OP-Q Treatments Start: 10/30/22 12:35 Freq: Status: Active Protocol: Document 03/11/23 12:34 LRN (Rec: 03/11/23 13:19 LRN [id number]) Therapeutic Exercises Supine Exercises Kegel on Wedge Supine Exercise Name Kegels on Wedge w/o substitute ms and with ball squeeze and hip AB/ER Equipment Used Vag electrode for Biofeedback, extra time needed for donning /doffing electr Reps/Minutes 24' Comments Minimal cuing needed for breath and isolation of Kegel Standing Exercises L SB stretch Standing Exercise Name L SB stretch, exhale on lower Reps/Minutes 15' Stretch arms by sides and R arm overhead Comments Extra time needed for determining max tolerated stretch and hold. Self-Care/Home Management Treatment Activities Self-Care/Home Management Activities I/S pt to do upper body L SB stretch with trunk lean L with R arm overhead vs lumbar L SB stretch. PT-OP-T Assessment and Plan Start: 10/30/22 12:35 Freq: Status: Active Protocol: Document 03/11/23 12:34 LRN (Rec: 03/11/23 13:19 LRN [id number]) Physical Therapy Assessment Goals Four Impairment Increased frequency of urination every 2 hours or less Short Term Goal (STG) Decrease pelvic pain at nighttime when having an urge to go to the bathroom, and eliminate the need for a pad at nighttime. 12/25/22: Deep breathing has helped to decrease the abdominal pain with nighttime urges. Pt not having to wear diaper pad at night. 02/12/23: Painful urge to urinate first in morning, not during the night. NO adult diaper needed at nighttime. STG Duration 11/27/22 (12/25/22: MET GOAL) [facility]cf Goal (LTG) Pt will not have to get up every 2 hours in the night to use the bathroom. 01/01/23: Every 2 hrs in nighttime part of days this week. 02/12/23: Urinates every 2.5-3 hrs. 02/26/23: Urinated at nighttime 2-3x/night (5hr and 3 hrs between voids). LTG Duration 01/28/23 (01/08/23: MET GOAL) Three Impairment Not able to perform a PF contraction in the absence of abdominal/glut ms Short Term Goal (STG) Improve awareness of the sensation of a proper PF contraction. 11/06/22: Pt educated in Kegel in isolation of substitute muscles. 12/25/22: Pt reporting she can feel a PF contraction. STG Duration 11/27/22 12/25/22: MET GOAL [facility] Goal (LTG) Pt will be able to isolate a PF contraction without overuse of the outer abdominal, gluteal, and hip AD muscles. 12/25/22: Minimal contraction felt at outer abdominal, gluteal, and hip AD muscles with PF contraction. LTG Duration 01/28/23 12/25/22: MET GOAL Two Impairment PF weakness with urinary leakage with a strong urge. Short Term Goal (STG) Pt will be educated in urinary delay technique, and be able to move and get up/down comfortably without having the feeling of heaviness and having to go urgently. 11/06/22: Pt educated in movement/transfers with coordination of breathing and PF contractions. 02/12/23: During car transfer training the pt didn't have a feeling of having to urinate on standing. 12/25/22: Educated pt in urinary delay technique with handout issued. 03/10/23: 70% without urgency. Heaviness feeling is pretty constant and sometimes controlled with PF contractions. Not having total loss of urinary control. STG Duration 03/12/23 (03/10/23: Improved, NOT MET GOAL) Building Construction Estimator Goal (LTG) Strengthen the PF for pt to be able to control her urine and not have to wear adult diapers, or at the most a regular urinary incontinent pad during the day. 02/12/23: Wearing adult diapers during day when going outside the home - unchanged. 03/11/23: Occasionally at end of day feels she may have been able to go without her adult diaper, but not yet confident to go w/o. Around house/when home doesn't need adult diaper . LTG Duration 03/29/23 (03/10/23: Improved, NOT MET GOAL) One Impairment Pt lacks appropriate self care HEP. Short Term Goal (STG) Education in proper methods for transfer with coordination of breathing, and proper vulvar/genital care. 11/06/22: Pt education in proper methods for transfers with coordination of breathing /PF contraction. STG Duration 11/06/22 (01/01/23: MET GOAL) Building Construction Estimator Goal (LTG) Pt will be independent with a self care HEP of PF/core strengthening and hip ROM exercises. 11/06/22: Kegel in isolation of substitute muscles and again with pillow under hips. 01/01/23: HEP: Fig 4 stretch with sequence of breath, & hip , ankle mvmt. 03/10/23: Self care reviewed. LTG Duration 04/28/23 (03/10/23: MET GOAL for current status) Assessment Summary Assessment Pt requested discharge to her home program after completion of therapy. Today she presented with lumbar spine in neutral with no tilt noted; therefore pt needing only upper thoracic L SB stretch due to C-curve in mid T/S with apex on the left. It was noted during strengthening with biofeedback, PF Resting tone on wedge is 0.1 uV's and pt able to maintain a PF contraction in isolation of substitute ms at avg of 5.0 uV 's, and with use of hip AD/AB w/ER's was ~ 7.0 uV's. Because the pt chose to discharge today, I was unable to complete a formal assessment of her PF strength, but visual inspection of her PF ex's per EMG biofeedback showed probable increase in PF strength. I did not do a visual inspection of her PF and assessment of her cystocele. The pt was encouraged to get reassessed for possible need of pessary if cystocele is behind the level of the hymen. The pt does have a HEP of PF strengthening ex's and appears to be capable of continue strengthening on a HEP, but if she is not able to keep up with the program, further therapy in the future would be appropriate to help the pt in return to her exercise program. Physical Therapy Plan Discharge Physical Therapy Discharge Reasons Patient Request Discharge Comments Pt attended today feeling her condition has much improved, and at end of treatment requested discharge; therefore final internal or biofeedback assessment was not performed. Pt has been encouraged to discuss with referring MD possible use of pessary for cystcele. Thank you for your referral.
== END 2023-03-11 14:58 | disposition home or self-care (01) ==
LOC: PHYS 12:30
PROVIDERS: Family Provider Family Medicine; PCP Family Medicine; Referring Provider Family Medicine; Visit Provider Family Medicine
DX: R32 Unspecified urinary incontinence (principal)
CPT/HCPCS: 97110; 97162; 97530; 97535

== ENCOUNTER → 2023-03-29 13:27 | Outpatient (CLI) | payer MEDICARE, SELFPAY ==
[2023-03-29 15:35] LABS: Alanine Aminotransferase 16 IU/L (<35); Albumin 3.8 g/dL (3.5-5.0); Albumin Globulin Ratio 1.4 (1.0-2.8); Alkaline Phosphatase 61 U/L (38-126); Aspartate Aminotransferase 21 IU/L (14-36); BUN Creatinine Ratio 21.8 (6-22); Bilirubin Total 0.4 mg/dL (0.2-1.3); Blood Urea Nitrogen 12 mg/dL (7-17); Calcium 9.1 mg/dL (8.4-10.2); Carbon Dioxide 29 mmol/L (22-32); Chloride 105 mmol/L (98-107); Estimated Glomerular Filt Rate > 60 mL/min (>60); Globulin 2.8 g/dL (1.7-4.1); Glucose 107 mg/dL (80-110); HEMOLYSIS < 15 (0-50); Potassium 3.7 mmol/L (3.4-5.1); Sodium 140 mmol/L (137-145); Total Protein 6.6 g/dL (6.3-8.2)
[2023-03-29 15:55] LABS: Vitamin D 25 Hydroxy (D3) 52.4 ng/mL (30.0-100.0)
[2023-03-30 06:22] LABS: Cholesterol HDL Ratio 3.8 ratio (0.0-4.4); Cholesterol,Total 162 mg/dL (100-199); HDL Cholesterol 43 mg/dL (>39); LDL Cholesterol Cal 88 mg/dL (0-99); Triglycerides 180 mg/dL (0-149); VLDL Cholesterol Cal 31 mg/dL (5-40); x Labcorp Estim. Avg Glu (eAG) 123 mg/dL (.); x Labcorp Hemoglobin A1c 5.9 % (4.8-5.6)
[2023-03-31 06:08] LABS: Parathyroid Hormone Int 21 pg/mL (15-65)
== END ==
PROVIDERS: Family Provider Family Medicine; PCP Nurse Practitioner Family; Referring Provider Nurse Practitioner Family; Visit Provider Nurse Practitioner Family
DX: M81.0 Age-related osteoporosis without current pathological fracture (principal); R73.9 Hyperglycemia, unspecified; E78.5 Hyperlipidemia, unspecified; R39.81 Functional urinary incontinence; N32.81 Overactive bladder
CPT/HCPCS: 36415; 80053; 80061; 82306; 83036; 83970; 87086

== ENCOUNTER → 2023-04-30 13:18 | Outpatient (CLI) | payer MEDICARE, SELFPAY | PROVIDERS: Family Provider Family Medicine; PCP Nurse Practitioner Family; Referring Provider Nurse Practitioner Family; Visit Provider Nurse Practitioner Family | DX: R35.0 Frequency of micturition (principal) | CPT/HCPCS: 87077; 87086; 87186 ==

== ENCOUNTER → 2023-11-20 10:33 | Outpatient (CLI) | payer MEDICARE, SELFPAY ==
[2023-11-21 08:20] LABS: Valproic Acid (Depakene) Total 39 ug/mL (50-100)
== END ==
PROVIDERS: Family Provider Family Medicine; PCP Nurse Practitioner Family; Referring Provider Nurse Practitioner Family; Visit Provider Nurse Practitioner Family
DX: Z51.81 Encounter for therapeutic drug level monitoring (principal)
CPT/HCPCS: 36415; 80164